=== PATIENT | male | born 1970 | race American Indian/Alaskan Native ===

== ENCOUNTER 2017-01-05 20:32 | Emergency (ER) | payer MEDICAID ==
[2017-01-05 23:30] LABS: CHLORIDE,CL 106 mmol/L (101-111); SODIUM,NA 138 mmol/L (135-145)
[2017-01-05] MEDS ORDERED: Sodium Chloride 0.9% 1,000 ML IV ONE (23:34)
--- NOTE | 2017-01-05 23:41 | EDM.PDOC ---
ED HPI GI/ABDOMINAL - General Chief Complaint: Abdominal Pain Stated Complaint: STOMACH PAIN Time Seen by Provider: 01/05/17 23:30 Source of Information: Reports: Patient History Limitations: Reports: No limitations - History of Present Illness INITIAL COMMENTS - FREE TEXT/NARRATIVE: This 46 yo male patient reports to the ED with continued abdominal pain. The patient reports this episode of pain started at about 1500 today. 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 The patient reports he has been seen by pain management, but is currently on no pain medications. The patient reports he has not taken anything for his current symptoms. The patient reports his is "sick of having pain." The patient reports he is scheduled to see his pain management doctor in 2 weeks for injections. The patient reports he has not been eating or drinking due to increased abdominal pain. The patient reports he did drink last night. Symptom Onset Date: 01/05/17 Symptom Onset Time: 15:00 Timing/Duration: Reports: Getting worse, Intermittent Location: generalized (upper abdomen) Quality: Reports: ache, cramping Severity: severe - Related Data Allergies/ADRs: Allergies Allergy/AdvReac Type Severity Reaction Status Date / Time cats and dogs Allergy Hives Uncoded 01/05/17 21:47 Home Meds: Home Meds Omeprazole 20 mg PO BID 11/09/13 [History] glyBURIDE [Glyburide] 5 mg PO DAILY 11/09/13 [History] Docusate Sodium [Colace] 1 tab PO BID 03/08/16 [History] Loratadine [Claritin] 1 tab PO DAILY PRN 03/08/16 [History] sitaGLIPtin Phos/Metformin HCl [Janumet Xr 50-1,000 mg Tablet] 1 tab PO BID 02/16 [History] traMADol [Ultram] 1 tab PO .Q6H PRN 03/08/16 [History] traZODone 1 tab PO BEDTIME 03/08/16 [History] atorvaSTATin [Lipitor] 20 mg PO DAILY 01/05/17 [History] Past Medical History - Past Health History Medical/Surgical History: Denies Medical/Surgical History HEENT History: Reports: Impaired vision Cardiovascular History: Reports: Heart murmur, High cholesterol Respiratory History: Reports: None Gastrointestinal History: Reports: Chronic constipation, Chronic diarrhea, GERD , Pancreatitis Genitourinary History: Reports: None Musculoskeletal History: Reports: Arthritis, Back pain, chronic, Fracture, Other (see below) Other Musculoskeletal History: Fracture Hands and ankle with arthritis. Neurological History: Reports: None Psychiatric History: Reports: Panic attack Endocrine/Metabolic History: Reports: Diabetes, type II Hematologic History: Reports: None Immunologic History: Reports: None Oncologic (Cancer) History: Reports: None Dermatologic History: Reports: None - Infectious Disease History Infectious Disease History: Reports: Chicken pox - Past Surgical History Head Surgeries/Procedures: Reports: None HEENT Surgical History: Reports: None Cardiovascular Surgical History: Reports: None Respiratory Surgical History: Reports: None GI Surgical History: Reports: Cholecystectomy Musculoskeletal Surgical History: Reports: None, Shoulder surgery, Other (see below) Other Musculoskeletal Surgeries/Procedures:: herniated disc Social & Family History - Family History Family Medical History: Unobtainable HEENT: Reports: Glaucoma Other HEENT Family History: mom GI: Reports: Pancreatitis Neurological: Reports: Seizure Other Neurological Family History: dad Endocrine/Metabolic: Reports: Diabetes, type II Other Endocrine/Metabolic Family History: mom and dad - Tobacco Use Smoking Status *Q: Current Every Day Smoker Years of Tobacco use: 29 Packs/Tins Daily: 0.5 Used Tobacco, but Quit: Yes Month Tobacco Last Used: 10 Second Hand Smoke Exposure: Yes - Caffeine Use Caffeine Use: Reports: Coffee, Soda - Alcohol Use Days Per Week of Alcohol Use: 2 Number of Drinks Per Day: 18 Total Drinks Per Week: 36 Date of Last Drink: 01/04/17 - Recreational Drug Use Recreational Drug Use: Yes Drug Use in Last 12 Months: Yes Recreational Drug Type: Reports: Marijuana/Hashish Recreational Drug Use Frequency: Rarely ED ROS GENERAL - Review of Systems Review Of Systems: ROS reveals no pertinent complaints other than HPI. ED EXAM, GI/ABD - Physical Exam Exam: See Below Exam Limited By: No limitations General Appearance: alert, WD/WN, moderate distress, obese Eyes: bilateral: normal appearance, EOMI Ears: normal external exam, normal canal, hearing grossly normal, normal TMs Nose: normal inspection, normal mucosa, no blood Throat/Mouth: Normal inspection, Normal lips, Normal teeth, Normal gums, Normal oropharynx, Normal voice, No airway compromise Head: atraumatic, normocephalic Neck: normal inspection, supple, non-tender, full range of motion Respiratory/Chest: no respiratory distress, lungs clear, normal breath sounds, no accessory muscle use, chest non-tender Cardiovascular: normal peripheral pulses, regular rate, rhythm, no edema, no gallop, no JVD, no murmur, no rub GI/Abdominal: normal bowel sounds, soft, no organomegaly, no distention, no abnormal bruit, no mass, tenderness (diffuse upper abdominal tenderness) (Male) Exam: Deferred Rectal (Males) Exam: Deferred Back Exam: normal inspection, full range of motion, NT Extremities: normal inspection, normal range of motion, non-tender, normal capillary refill, no pedal edema Neurological: alert, oriented, CN II-XII intact, normal cognition, normal gait, normal reflexes, no motor/sensory deficits Psychiatric: normal affect, depressed mood Skin Exam: Warm, Dry, Intact, Normal color, No rash Lymphatic: no adenopathy Course - Vital Signs Last Recorded V/S: Last Vital Signs Temp 37.3 C 01/05/17 21:45 Pulse 87 01/05/17 21:45 Resp 20 01/05/17 21:45 BP 142/73 H 01/05/17 21:45 Pulse Ox 87 L 01/05/17 21:45 - Orders/Labs/Meds Orders: Active Orders 24 hr Category Date Time Status CULTURE BLOOD [BC] Stat Lab 01/05/17 23:00 Received Lactated Ringers [Ringers, Lactated] 1,000 ml Med 01/06/17 01:18 Active IV .BOLUS Medication Orders Lactated Ringer's (Ringers, Lactated) 1,000 mls @ 999 mls/hr IV .BOLUS ONE Stop: 01/06/17 02:18 Last Admin: 01/06/17 01:21 Dose: 999 mls/hr Labs: Laboratory Tests 01/05/17 01/05/17 01/05/17 Range/Units 23:00 23:00 23:00 WBC 9.8 (5.0-10.0) 10^3/uL RBC 5.01 (4.6-6.2) 10^6/uL Hgb 15.8 (14.0-18.0) g/dL Hct 46.6 (40.0-54.0) % MCV 93.0 (80-100) fL MCH 31.5 (27.0-34.0) pg MCHC 33.9 (33.0-35.0) g/dL Plt Count 279 (150-450) 10^3/uL Neut % (Auto) 50.5 (42.2-75.2) % Lymph % (Auto) 36.1 (20.5-50.1) % Stevens % (Auto) 9.2 H (2-8) % Eos % (Auto) 3.7 H (1.0-3.0) % Baso % (Auto) 0.5 (0.0-1.0) % Sodium 138 (135-145) mmol/L Potassium 3.6 (3.6-5.0) mmol/L Chloride 106 (101-111) mmol/L Carbon Dioxide 24.0 (21.0-31.0) mmol/L Anion Gap 11.6 BUN 18 (7-18) mg/dL Creatinine 0.8 (0.6-1.3) mg/dL Est Cr Clr Drug Dosing 107.87 mL/min Estimated GFR (MDRD) > 60 BUN/Creatinine Ratio 22.50 Glucose 131 H (74-105) mg/dL Lactic Acid (0.5-2.2) mmol/L Calcium 9.2 (8.4-10.2) mg/dl Total Bilirubin 0.5 (0.2-1.0) mg/dL AST 27 (10-42) IU/L ALT 30 (10-60) IU/L Alkaline Phosphatase 63 (42-121) IU/L Ammonia 26 (11-35) umol/L Total Protein 7.9 (6.7-8.2) g/dl Albumin 4.6 (3.2-5.5) g/dl Globulin 3.3 Albumin/Globulin Ratio 1.39 Amylase 888 H (28-100) U/L Lipase 31 (22-51) U/L Urine Color (YELLOW) Urine Appearance (CLEAR) Urine pH (5.0-9.0) Ur Specific Chelsea (1.005-1.030) Urine Protein (NEGATIVE) Urine Glucose (UA) (NEGATIVE) Urine Ketones (NEGATIVE) Urine Occult Blood (NEGATIVE) Urine Nitrite (NEGATIVE) Urine Bilirubin (NEGATIVE) Urine Urobilinogen (0.2-1.0) mg/dL Ur Leukocyte Esterase (NEGATIVE) Urine RBC /HPF Urine WBC (0-5/HPF) /HPF Ur Epithelial Cells /HPF Urine Bacteria (0-FEW/HPF) /HPF Urine Mucus /LPF Urine Opiates Screen (NEGATIVE) Ur Oxycodone Screen (NEGATIVE) Urine Methadone Screen (NEGATIVE) Ur Barbiturates Screen (NEGATIVE) U Tricyclic Antidepress (NEGATIVE) Ur Phencyclidine Scrn (NEGATIVE) Ur Amphetamine Screen (NEGATIVE) U Methamphetamines Scrn (NEGATIVE) Urine MDMA Screen (NEGATIVE) U Benzodiazepines Scrn (NEGATIVE) Urine Cocaine Screen (NEGATIVE) U Marijuana (THC) Screen (NEGATIVE) 01/05/17 01/06/17 01/06/17 Range/Units 23:00 00:47 00:47 WBC (5.0-10.0) 10^3/uL RBC (4.6-6.2) 10^6/uL Hgb (14.0-18.0) g/dL Hct (40.0-54.0) % MCV (80-100) fL MCH (27.0-34.0) pg MCHC (33.0-35.0) g/dL Plt Count (150-450) 10^3/uL Neut % (Auto) (42.2-75.2) % Lymph % (Auto) (20.5-50.1) % Stevens % (Auto) (2-8) % Eos % (Auto) (1.0-3.0) % Baso % (Auto) (0.0-1.0) % Sodium (135-145) mmol/L Potassium (3.6-5.0) mmol/L Chloride (101-111) mmol/L Carbon Dioxide (21.0-31.0) mmol/L Anion Gap BUN (7-18) mg/dL Creatinine (0.6-1.3) mg/dL Est Cr Clr Drug Dosing mL/min Estimated GFR (MDRD) BUN/Creatinine Ratio Glucose (74-105) mg/dL Lactic Acid 1.6 (0.5-2.2) mmol/L Calcium (8.4-10.2) mg/dl Total Bilirubin (0.2-1.0) mg/dL AST (10-42) IU/L ALT (10-60) IU/L Alkaline Phosphatase (42-121) IU/L Ammonia (11-35) umol/L Total Protein (6.7-8.2) g/dl Albumin (3.2-5.5) g/dl Globulin Albumin/Globulin Ratio Amylase (28-100) U/L Lipase (22-51) U/L Urine Color Yellow (YELLOW) Urine Appearance Clear (CLEAR) Urine pH 5.5 (5.0-9.0) Ur Specific Chelsea >= 1.030 (1.005-1.030) Urine Protein 100 H (NEGATIVE) Urine Glucose (UA) Negative (NEGATIVE) Urine Ketones Negative (NEGATIVE) Urine Occult Blood Negative (NEGATIVE) Urine Nitrite Negative (NEGATIVE) Urine Bilirubin Small H (NEGATIVE) Urine Urobilinogen 0.2 (0.2-1.0) mg/dL Ur Leukocyte Esterase Negative (NEGATIVE) Urine RBC 0-5 /HPF Urine WBC 0-5 (0-5/HPF) /HPF Ur Epithelial Cells Rare /HPF Urine Bacteria Few (0-FEW/HPF) /HPF Urine Mucus Moderate H /LPF Urine Opiates Screen Negative (NEGATIVE) Ur Oxycodone Screen Negative (NEGATIVE) Urine Methadone Screen Negative (NEGATIVE) Ur Barbiturates Screen Negative (NEGATIVE) U Tricyclic Antidepress Positive H (NEGATIVE) Ur Phencyclidine Scrn Negative (NEGATIVE) Ur Amphetamine Screen Negative (NEGATIVE) U Methamphetamines Scrn Negative (NEGATIVE) Urine MDMA Screen Negative (NEGATIVE) U Benzodiazepines Scrn Negative (NEGATIVE) Urine Cocaine Screen Negative (NEGATIVE) U Marijuana (THC) Screen Positive H (NEGATIVE) Meds: Medications Generic Name Dose Route Start Last Admin Trade Name Freq PRN Reason Stop Dose Admin Lactated Ringer's 1,000 mls @ 999 mls/hr 01/06/17 01:18 01/06/17 01:21 Ringers, Lactated IV 01/06/17 02:18 999 mls/hr .BOLUS ONE Administration Discontinued Medications Generic Name Dose Route Start Last Admin Trade Name Freq PRN Reason Stop Dose Admin Sodium Chloride 1,000 mls @ 999 mls/hr 01/05/17 23:34 01/05/17 23:53 Normal Saline IV 01/06/17 00:34 999 mls/hr .BOLUS ONE Administration Tramadol HCl 100 mg 01/06/17 01:18 01/06/17 01:24 Ultram PO 01/06/17 01:19 100 mg ONETIME ONE Administration - Re-Assessments/Exams Free Text/Narrative Re-Assessment/Exam: 05/06/17 01:20 The patient was advised of the examination and lab results. The patient reported that he has been diagnosed with pancreatitis (previously denied). The patient was offered options for treatment 1) patient will be given IV Lactated Ringers and PO Tramadol (patient now remembers that his pain management doctor had given him Tramadol, but he has not taken any) or 2) I offered to call the hospitalist for admission. The patient elected to have the IV fluid and Tramadol and be discharged. Departure - Departure Time of Disposition: 02:15 Disposition: Home, Self-Care 01 Condition: fair Clinical Impression: Pancreatitis Qualifiers: Chronicity: acute Pancreatitis type: alcohol induced Acute pancreatitis complication: unspecified Qualified Code(s): K85.20 - Alcohol induced acute pancreatitis without necrosis or infection Instructions: Acute Pancreatitis, [id number] Forms: ED Department Discharge Care Plan Goals: The patient was advised of the examination and lab results during the visit. The patient was given 1 liter of IV Saline, 1 liter of IV Lactated Ringers and 100 mg of oral Tramadol while in the ED. The patient was given the option for me to contact our hospitalist for continued care, but the patient elected to be treated in the ED and released. If the patient has any additional symptoms or concerns, the patient should follow-up with his primary care facility, with his painter drum or return to the emergency department. - My Orders Last 24 Hours: My Active Orders 01/05/17 23:00 CULTURE BLOOD [BC] Stat 01/06/17 01:18 Lactated Ringers [Ringers, Lactated] 1,000 ml IV .BOLUS - Assessment/Plan Last 24 Hours: My Active Orders 01/05/17 23:00 CULTURE BLOOD [BC] Stat 01/06/17 01:18 Lactated Ringers [Ringers, Lactated] 1,000 ml IV .BOLUS
[2017-01-06] MEDS ORDERED: Lactated Ringers 1,000 ML IV ONE (01:18)
[2017-01-06] MEDS ORDERED: traMADol 50 MG Tab PO ONE (01:18)
[2017-01-06 02:22] VITALS: BP 120/78
== END 2017-01-06 02:24 | disposition home or self-care (01) ==
LOC: DL.ED 20:32
DX: K85.20 Alcohol induced acute pancreatitis without necrosis or infection (principal); K21.9 Gastro-esophageal reflux disease without esophagitis; M19.90 Unspecified osteoarthritis, unspecified site; E11.9 Type 2 diabetes mellitus without complications; R01.1 Cardiac murmur, unspecified; E78.00 Pure hypercholesterolemia, unspecified; F17.210 Nicotine dependence, cigarettes, uncomplicated; Z79.899 Other long term (current) drug therapy; Z90.49 Acquired absence of other specified parts of digestive tract; Z91.09 Other allergy status, other than to drugs and biological substances
CPT/HCPCS: 36415; 80053; 80305; 81001; 82140; 82150; 83605; 83690; 85025; 87040; 96360; 96361; 99283; A9270; J7030; J7120

== ENCOUNTER 2017-02-22 06:01 | Day surgery (SDC) | payer MEDICAID ==
[2017-02-22] MEDS ORDERED: fentaNYL 100 MCG/2 ML SDV ONE (06:16)
[2017-02-22] MEDS ORDERED: Midazolam 1 MG/ML 2 ML SDV ONE (06:16)
[2017-02-22] MEDS ORDERED: Sodium Chloride 0.9% 10 ML Syringe FLUSH PRN (07:30)
[2017-02-22] MEDS ORDERED: Dextrose 5%-0.45% NaCl 1,000 ML IV SCH (07:30)
[2017-02-22] MEDS ORDERED: fentaNYL 100 MCG/2 ML SDV IV ONE ×3 (07:32→15:18)
[2017-02-22] MEDS ORDERED: Midazolam 1 MG/ML 2 ML SDV IV ONE ×3 (07:33→15:18)
[2017-02-22 09:41] VITALS: BP 116/78
--- NOTE | 2017-02-22 11:26 | OR ---
DATE: 02/22/2017 PROCEDURE: Esophagogastroduodenoscopy and multiple pinch biopsies. INSTRUMENT USED: GIF-H180 Olympus video panendoscope. PREMEDICATIONS: No oral topical anesthesia used. Fentanyl 100 mcg intravenous, Versed 2 mg intravenous. The procedure was done under pulse oximetry, BP recording, and assistant food service manager. INDICATIONS: The patient with persistent abdominal pain, unexplained and not responsive to medical measures, on long-term PPI. Recent imaging study suggestive of thickened duodenal wall. Esophagogastroduodenoscopy is performed for detection of any active erosive lesions, malignancy also under consideration, duodenal biopsy is to be obtained for any evidence of amyloidosis, H. pylori status to be determined, endoscopic hemostasis therapy if needed. DESCRIPTION OF PROCEDURE: The scope was passed with ease. Adequate visualization of the esophagus was made from proximal to distal areas. No upper esophageal lesions identified. No distal esophageal stricture. No uphill or downhill esophageal varices. No Sara-Jacinto tear. No evidence of erosive esophagitis by [place] criteria. No esophageal polyp or tumor mass identified. Z-line was seen at around 37 cm distal to the oral verge, 4 quadrant biopsies were taken from the pink columnar epithelium and sent for any microscopic evidence of intestinal metaplasia. Sliding hiatal hernia was noted. Gastric fundus examination by retroflexion showed no polypoid lesions. No proximal gastric varices noted. No gastric ulcer, malignant mass, or vascular ectasia identified. Multiple pinch biopsies were obtained from the gastric antrum and proximal body and sent for PyloriTek test for H. pylori and histopathology. Duodenal bulb showed no ulcer. Visualized second part of the duodenum was unremarkable. Multiple pinch biopsies were taken from the second part of the duodenum and sent for any histopathologic evidence of amyloidosis. No bleeding was noted from any of the visualized areas at the completion of examination. Photographs were taken of the duodenal bulb, gastric antrum, fundus, and distal esophagus. IMPRESSION: Sliding hiatal hernia. The patient tolerated the procedure well. [facility] /[id number]
== END 2017-02-22 09:50 | disposition home or self-care (01) ==
LOC: DL.ENDO 06:01
PROVIDERS: ATTEND Internal Medicine Gastroenterology
DX: K29.50 Unspecified chronic gastritis without bleeding (principal); K44.9 Diaphragmatic hernia without obstruction or gangrene
CPT/HCPCS: 43239; 87077; J2250; J3010; J7042

== ENCOUNTER 2017-04-17 14:25 | Emergency (ER) | payer MEDICAID ==
[2017-04-17 17:26] LABS: CHLORIDE,CL 101 mmol/L (101-111); SODIUM,NA 136 mmol/L (135-145)
[2017-04-17 17:29] LABS: ACETAMINOPHEN < 10
[2017-04-17] MEDS ORDERED: Ondansetron 4 MG/2 ML SDV IV ONE (17:39)
[2017-04-17] MEDS ORDERED: Lactated Ringers 1,000 ML IV ONE (17:39)
[2017-04-17] MEDS ORDERED: HYDROmorphone 1 MG/ML Syringe IVPUSH ONE (17:39)
--- NOTE | 2017-04-17 17:51 | EDM.PDOC ---
Scribed by Astrid Lopez 04/17/17 1325 for Phan Christiansen PA ED HPI GENERAL MEDICAL PROBLEM - General Chief Complaint: Gastrointestinal Problem Stated Complaint: [id number] SICK FOR FEW DAYS Time Seen by Provider: 04/17/17 16:30 Source of Information: Reports: Patient, RN, RN Notes Reviewed History Limitations: Reports: No Limitations - History of Present Illness INITIAL COMMENTS - FREE TEXT/NARRATIVE: Patient presents with being sick and nauseated for 3-4 days. He has diffuse abdominal pain, right back and hip pain. Yesterday the left eye swollen. He also has body aches. He saw Dr. Malik last week. Tylenol and Ibuprofen with no relief. Patient has lost his Tramadol and gabapentin. Patient has only been lying around and not moving. Location: Reports: Abdomen, Back Quality: Reports: Ache Severity: Moderate Improves with: Reports: None Worsens with: Reports: None Associated Symptoms: Reports: No Other Symptoms Abdomen Pain Score (Numeric/FACES): 8 - Related Data Allergies Allergy/AdvReac Type Severity Reaction Status Date / Time cats and dogs Allergy Hives Uncoded 02/22/17 06:30 Home Meds: Home Meds Omeprazole 20 mg PO BID 11/09/13 [History] glyBURIDE [Glyburide] 2.5 mg PO BID 11/09/13 [History] Docusate Sodium [Colace] 1 tab PO BID 03/08/16 [History] Loratadine [Claritin] 1 tab PO DAILY PRN 03/08/16 [History] sitaGLIPtin Phos/Metformin HCl [Janumet Xr 50-1,000 mg Tablet] 50 - 1,000 mg PO BID 03/08/16 [History] traZODone 1 tab PO BEDTIME 03/08/16 [History] atorvaSTATin [Lipitor] 20 mg PO DAILY 01/05/17 [History] Amitriptyline [Elavil] 2 tab PO BEDTIME 02/20/17 [History] Aspirin [Ecotrin] 1 tab PO DAILY 02/20/17 [History] Gabapentin [Neurontin] 1 tab PO QID 02/20/17 [History] tiZANidine [Zanaflex] 1 tab PO TID 02/20/17 [History] traMADol [Ultram] 1 tab PO Q6H 06/20/17 [History] Past Medical History - Past Health History Medical/Surgical History: Denies Medical/Surgical History HEENT History: Reports: Impaired Vision Cardiovascular History: Reports: Heart Murmur, High Cholesterol Respiratory History: Reports: None Gastrointestinal History: Reports: Chronic Constipation, Chronic Diarrhea, GERD , Pancreatitis Genitourinary History: Reports: None, Other (See Below) (proteinuria) Musculoskeletal History: Reports: Arthritis, Back Pain, Chronic, Fracture, Other (See Below) Other Musculoskeletal History: Fracture Hands and ankle with arthritis. Neurological History: Reports: None, Vertigo Psychiatric History: Reports: Panic Attack Endocrine/Metabolic History: Reports: Diabetes, Type II Hematologic History: Reports: None Immunologic History: Reports: None Oncologic (Cancer) History: Reports: None Dermatologic History: Reports: None, Other (See Below) Other Dermatologic History: poison shmuel to bilateral leg - Infectious Disease History Infectious Disease History: Reports: Chicken Pox - Past Surgical History Head Surgeries/Procedures: Reports: None HEENT Surgical History: Reports: None Cardiovascular Surgical History: Reports: None Respiratory Surgical History: Reports: None GI Surgical History: Reports: Cholecystectomy, Colonoscopy (2 months ago.), EGD Neurological Surgical History: Reports: Other (See Below) (herniated disk injection.) Musculoskeletal Surgical History: Reports: None, Arthroscopic Knee, Shoulder Surgery, Other (See Below) Other Musculoskeletal Surgeries/Procedures:: herniated disc Social & Family History - Family History Family Medical History: Unobtainable HEENT: Reports: Glaucoma Other HEENT Family History: mom GI: Reports: Pancreatitis Neurological: Reports: Seizure Other Neurological Family History: dad Endocrine/Metabolic: Reports: Diabetes, type II Other Endocrine/Metabolic Family History: mom and dad - Tobacco Use Smoking Status *Q: Current Every Day Smoker Years of Tobacco use: 20 Packs/Tins Daily: 0.5 Used Tobacco, but Quit: Yes Month Tobacco Last Used: 10 Second Hand Smoke Exposure: No - Caffeine Use Caffeine Use: Reports: Coffee, Energy Drinks, Soda, Tea - Alcohol Use Days Per Week of Alcohol Use: 2 Number of Drinks Per Day: 18 Total Drinks Per Week: 36 - Recreational Drug Use Recreational Drug Use: Yes Drug Use in Last 12 Months: Yes Recreational Drug Type: Reports: Marijuana/Hashish Other Recreational Drug Type: smoked pot several days ago Recreational Drug Use Frequency: Rarely ED ROS GENERAL - Review of Systems Review Of Systems: ROS reveals no pertinent complaints other than HPI. ED EXAM, GI/ABD - Physical Exam Exam: See Below Exam Limited By: No Limitations General Appearance: Alert, WD/WN, Moderate Distress Eyes: Bilateral: Normal Appearance, EOMI Ears: Normal External Exam, Normal Canal, Hearing Grossly Normal, Normal TMs Nose: Normal Inspection, Normal Mucosa, No Blood Throat/Mouth: Normal Inspection, Normal Lips, Normal Teeth, Normal Gums, Normal Oropharynx, Normal Voice, No Airway Compromise Head: Atraumatic, Normocephalic Neck: Normal Inspection, Supple, Non-Tender, Full Range of Motion Respiratory/Chest: No Respiratory Distress, Lungs Clear, Normal Breath Sounds, No Accessory Muscle Use, Chest Non-Tender Cardiovascular: Normal Peripheral Pulses, Regular Rate, Rhythm, No Edema, No Gallop, No JVD, No Murmur, No Rub GI/Abdominal Exam: Normal Bowel Sounds, Soft, No Organomegaly, No Distention, No Abnormal Bruit, No Mass, Pelvis Stable, Tender (diffuse upper abdominal tenderness to palpation) (Male) Exam: Deferred Rectal (Males) Exam: Deferred Back Exam: Normal Inspection, Full Range of Motion, NT Extremities: Normal Inspection, Normal Range of Motion, Non-Tender, Normal Capillary Refill, No Pedal Edema Neurological: Alert, Oriented, CN II-XII Intact, Normal Cognition, Normal Gait, Normal Reflexes, No Motor/Sensory Deficits Psychiatric: Normal Affect, Normal Mood Skin Exam: Warm, Dry, Intact, Normal Color, No Rash Lymphatic: No Adenopathy Course - Vital Signs Last Recorded V/S: Last Vital Signs Temp 36.6 C 04/17/17 18:40 Pulse 63 04/17/17 18:40 Resp 18 04/17/17 18:40 BP 111/57 L 04/17/17 18:40 Pulse Ox 97 04/17/17 18:40 - Orders/Labs/Meds Labs: Laboratory Tests 04/17/17 04/17/17 04/17/17 Range/Units 16:40 16:40 17:00 WBC 8.8 (5.0-10.0) 10^3/uL RBC 4.75 (4.6-6.2) 10^6/uL Hgb 15.4 (14.0-18.0) g/dL Hct 45.5 (40.0-54.0) % MCV 95.8 (80-100) fL MCH 32.4 (27.0-34.0) pg MCHC 33.8 (33.0-35.0) g/dL Plt Count 217 (150-450) 10^3/uL Neut % (Auto) 60.1 (42.2-75.2) % Lymph % (Auto) 29.0 (20.5-50.1) % Orange % (Auto) 7.6 (2-8) % Eos % (Auto) 3.1 H (1.0-3.0) % Baso % (Auto) 0.2 (0.0-1.0) % Sodium (135-145) mmol/L Potassium (3.6-5.0) mmol/L Chloride (101-111) mmol/L Carbon Dioxide (21.0-31.0) mmol/L Anion Gap BUN (7-18) mg/dL Creatinine (0.6-1.3) mg/dL Est Cr Clr Drug Dosing mL/min Estimated GFR (MDRD) BUN/Creatinine Ratio Glucose (74-105) mg/dL Calcium (8.4-10.2) mg/dl Magnesium (1.8-2.5) mg/dL Total Bilirubin (0.2-1.0) mg/dL AST (10-42) IU/L ALT (10-60) IU/L Alkaline Phosphatase (42-121) IU/L Total Protein (6.7-8.2) g/dl Albumin (3.2-5.5) g/dl Globulin Albumin/Globulin Ratio Amylase (28-100) U/L Lipase (22-51) U/L Urine Color Yellow (YELLOW) Urine Appearance Clear (CLEAR) Urine pH 6.5 (5.0-9.0) Ur Specific [place] 1.010 (1.005-1.030) Urine Protein Negative (NEGATIVE) Urine Glucose (UA) Negative (NEGATIVE) Urine Ketones Negative (NEGATIVE) Urine Occult Blood Negative (NEGATIVE) Urine Nitrite Negative (NEGATIVE) Urine Bilirubin Negative (NEGATIVE) Urine Urobilinogen 0.2 (0.2-1.0) mg/dL Ur Leukocyte Esterase Negative (NEGATIVE) Urine RBC Not seen /HPF Urine WBC 0-5 (0-5/HPF) /HPF Ur Epithelial Cells Occasional /HPF Urine Bacteria Occasional (0-FEW/HPF) /HPF Urine Mucus Occasional /LPF Urine Opiates Screen Negative (NEGATIVE) Ur Oxycodone Screen Negative (NEGATIVE) Urine Methadone Screen Negative (NEGATIVE) Acetaminophen Ur Barbiturates Screen Negative (NEGATIVE) U Tricyclic Antidepress Negative (NEGATIVE) Ur Phencyclidine Scrn Negative (NEGATIVE) Ur Amphetamine Screen Negative (NEGATIVE) U Methamphetamines Scrn Negative (NEGATIVE) Urine MDMA Screen Negative (NEGATIVE) U Benzodiazepines Scrn Negative (NEGATIVE) Urine Cocaine Screen Negative (NEGATIVE) U Marijuana (THC) Screen Positive H (NEGATIVE) 04/17/17 Range/Units 17:00 WBC (5.0-10.0) 10^3/uL RBC (4.6-6.2) 10^6/uL Hgb (14.0-18.0) g/dL Hct (40.0-54.0) % MCV (80-100) fL MCH (27.0-34.0) pg MCHC (33.0-35.0) g/dL Plt Count (150-450) 10^3/uL Neut % (Auto) (42.2-75.2) % Lymph % (Auto) (20.5-50.1) % Orange % (Auto) (2-8) % Eos % (Auto) (1.0-3.0) % Baso % (Auto) (0.0-1.0) % Sodium 136 (135-145) mmol/L Potassium 3.4 L (3.6-5.0) mmol/L Chloride 101 (101-111) mmol/L Carbon Dioxide 25.0 (21.0-31.0) mmol/L Anion Gap 13.4 BUN 12 (7-18) mg/dL Creatinine 0.7 (0.6-1.3) mg/dL Est Cr Clr Drug Dosing 121.14 mL/min Estimated GFR (MDRD) > 60 BUN/Creatinine Ratio 17.14 Glucose 132 H (74-105) mg/dL Calcium 8.9 (8.4-10.2) mg/dl Magnesium 1.9 (1.8-2.5) mg/dL Total Bilirubin 0.7 (0.2-1.0) mg/dL AST 23 (10-42) IU/L ALT 30 (10-60) IU/L Alkaline Phosphatase 67 (42-121) IU/L Total Protein 7.1 (6.7-8.2) g/dl Albumin 4.2 (3.2-5.5) g/dl Globulin 2.9 Albumin/Globulin Ratio 1.45 Amylase 795 H (28-100) U/L Lipase 32 (22-51) U/L Urine Color (YELLOW) Urine Appearance (CLEAR) Urine pH (5.0-9.0) Ur Specific [place] (1.005-1.030) Urine Protein (NEGATIVE) Urine Glucose (UA) (NEGATIVE) Urine Ketones (NEGATIVE) Urine Occult Blood (NEGATIVE) Urine Nitrite (NEGATIVE) Urine Bilirubin (NEGATIVE) Urine Urobilinogen (0.2-1.0) mg/dL Ur Leukocyte Esterase (NEGATIVE) Urine RBC /HPF Urine WBC (0-5/HPF) /HPF Ur Epithelial Cells /HPF Urine Bacteria (0-FEW/HPF) /HPF Urine Mucus /LPF Urine Opiates Screen (NEGATIVE) Ur Oxycodone Screen (NEGATIVE) Urine Methadone Screen (NEGATIVE) Acetaminophen < 10 Ur Barbiturates Screen (NEGATIVE) U Tricyclic Antidepress (NEGATIVE) Ur Phencyclidine Scrn (NEGATIVE) Ur Amphetamine Screen (NEGATIVE) U Methamphetamines Scrn (NEGATIVE) Urine MDMA Screen (NEGATIVE) U Benzodiazepines Scrn (NEGATIVE) Urine Cocaine Screen (NEGATIVE) U Marijuana (THC) Screen (NEGATIVE) Meds: Medications Discontinued Medications Generic Name Dose Route Start Last Admin Trade Name Gilma PRN Reason Stop Dose Admin Hydromorphone HCl 1 mg 04/17/17 17:39 04/17/17 17:55 Dilaudid IVPUSH 04/17/17 17:40 1 mg ONETIME ONE Administration Lactated Ringer's 1,000 mls @ 999 mls/hr 04/17/17 17:39 04/17/17 17:54 Ringers, Lactated IV 04/17/17 18:39 999 mls/hr .BOLUS ONE Administration Ondansetron HCl 4 mg 04/17/17 17:39 04/17/17 17:56 Zofran IV 04/17/17 17:40 4 mg ONETIME ONE Administration Departure - Departure Time of Disposition: 17:47 Disposition: Home, Self-Care 01 Condition: Fair Clinical Impression: Acute pancreatitis Qualifiers: Pancreatitis type: unspecified pancreatitis type Acute pancreatitis complication: no infection or necrosis Qualified Code(s): K85.90 - Acute pancreatitis without necrosis or infection, unspecified - Discharge Information Instructions: Acute Pancreatitis, [id number] Forms: ED Department Discharge Care Plan Goals: The patient was advised of the examination and lab results during the visit. The patient was given a liter of IV fluid, IV Zofran and IV Dilaudid while in the ED. The patient was discharged with a script for Foster () #16 to take 1 by mouth every 6 hours as needed for pain and Zofran (4 mg) #20 to take 1 by mouth every 6 hours as needed for nausea. If the patient has any additional symptoms or concerns, the patient should follow-up with his primary care facility or return to the emergency department. I have read and agree with the documentation that has been completed regarding this visit. By signing this record, I attest that the documentation was completed in my physical presence and is an accurate record of the encounter.
[2017-04-17 19:15] VITALS: BP 122/75
== END 2017-04-17 19:01 | disposition home or self-care (01) ==
LOC: DL.ED 14:25
DX: K85.90 Acute pancreatitis without necrosis or infection, unspecified (principal); M19.90 Unspecified osteoarthritis, unspecified site; E78.00 Pure hypercholesterolemia, unspecified; E11.9 Type 2 diabetes mellitus without complications; K21.9 Gastro-esophageal reflux disease without esophagitis; F17.210 Nicotine dependence, cigarettes, uncomplicated; Z91.048 Other nonmedicinal substance allergy status; Z79.82 Long term (current) use of aspirin; Z79.899 Other long term (current) drug therapy; Z90.49 Acquired absence of other specified parts of digestive tract; Z79.84 Long term (current) use of oral hypoglycemic drugs
CPT/HCPCS: 36415; 80053; 80305; 81001; 82150; 83690; 83735; 85025; 96365; 96375; 99284; G0480; J1170; J2405; J7120

== ENCOUNTER 2017-11-01 13:19 | Emergency (ER) | payer MEDICAID, OTHER ==
--- NOTE | 2017-11-01 13:45 | EDM.PDOC ---
<ChristiansenPhan Yoandy - Last Filed: 11/01/17 13:39> ED HPI GENERAL MEDICAL PROBLEM - General Chief Complaint: Flank Pain Stated Complaint: BACK TO RIBS HURT Time Seen by Provider: 11/01/17 13:40 Source of Information: Reports: Patient History Limitations: Reports: No Limitations - History of Present Illness INITIAL COMMENTS - FREE TEXT/NARRATIVE: This 47 yo male patient reports to the ED with a 2-3 day history of right sided abdominal pain with diarrhea and nausea. The patient reports he has been taking Tylenol with no relief from the symptoms. The patient reports that he attempted to get into the [facility] to be seen, but there were no appointments available. Onset Date: 10/30/17 Duration: Constant Location: Reports: Abdomen (right sided abdomen ) Quality: Reports: Ache, Sharp Severity: Moderate Improves with: Reports: None Worsens with: Reports: None Associated Symptoms: Reports: Nausea/Vomiting Treatments WAFER FABRICATOR: Reports: Acetaminophen - Related Data Allergies Allergy/AdvReac Type Severity Reaction Status Date / Time cats and dogs Allergy Hives Uncoded 11/01/17 13:30 Home Meds: Home Meds Omeprazole 20 mg PO BID 11/09/13 [History] glyBURIDE [Glyburide] 2.5 mg PO BID 11/09/13 [History] Docusate Sodium [Colace] 1 tab PO BID 03/08/16 [History] Loratadine [Claritin] 1 tab PO DAILY PRN 03/08/16 [History] sitaGLIPtin Phos/Metformin HCl [Janumet Xr 50-1,000 mg Tablet] 50 - 1,000 mg PO BID 03/08/16 [History] traZODone 1 tab PO BEDTIME 03/08/16 [History] atorvaSTATin [Lipitor] 20 mg PO DAILY 01/05/17 [History] Amitriptyline [Elavil] 2 tab PO BEDTIME 02/20/17 [History] Aspirin [Ecotrin] 1 tab PO DAILY 02/20/17 [History] Gabapentin [Neurontin] 1 tab PO QID 02/20/17 [History] tiZANidine [Zanaflex] 1 tab PO TID 02/20/17 [History] traMADol [Ultram] 1 tab PO Q6H 02/20/17 [History] Past Medical History - Past Health History Medical/Surgical History: Denies Medical/Surgical History HEENT History: Reports: Impaired Vision Cardiovascular History: Reports: Heart Murmur, High Cholesterol Respiratory History: Reports: None Gastrointestinal History: Reports: Chronic Constipation, Chronic Diarrhea, GERD , Pancreatitis Genitourinary History: Reports: None, Other (See Below) (proteinuria) Musculoskeletal History: Reports: Arthritis, Back Pain, Chronic, Fracture, Other (See Below) Other Musculoskeletal History: Fracture Hands and ankle with arthritis. Neurological History: Reports: None, Vertigo Psychiatric History: Reports: Panic Attack Endocrine/Metabolic History: Reports: Diabetes, Type II Hematologic History: Reports: None Immunologic History: Reports: None Oncologic (Cancer) History: Reports: None Dermatologic History: Reports: None, Other (See Below) Other Dermatologic History: poison shmuel to bilateral leg - Infectious Disease History Infectious Disease History: Reports: Chicken Pox - Past Surgical History Head Surgeries/Procedures: Reports: None HEENT Surgical History: Reports: None Cardiovascular Surgical History: Reports: None Respiratory Surgical History: Reports: None GI Surgical History: Reports: Cholecystectomy, Colonoscopy (2 months ago.), EGD Neurological Surgical History: Reports: Other (See Below) (herniated disk injection.) Musculoskeletal Surgical History: Reports: None, Arthroscopic Knee, Shoulder Surgery, Other (See Below) Other Musculoskeletal Surgeries/Procedures:: herniated disc Social & Family History - Family History Family Medical History: Unobtainable HEENT: Reports: Glaucoma Other HEENT Family History: mom GI: Reports: Pancreatitis Neurological: Reports: Seizure Other Neurological Family History: dad Endocrine/Metabolic: Reports: Diabetes, type II Other Endocrine/Metabolic Family History: mom and dad - Tobacco Use Smoking Status *Q: Current Every Day Smoker Years of Tobacco use: 20 Packs/Tins Daily: 0.5 Used Tobacco, but Quit: Yes Month Tobacco Last Used: 10 Second Hand Smoke Exposure: No - Caffeine Use Caffeine Use: Reports: Coffee, Soda - Alcohol Use Days Per Week of Alcohol Use: 2 Number of Drinks Per Day: 18 Total Drinks Per Week: 36 - Recreational Drug Use Recreational Drug Use: No Drug Use in Last 12 Months: Yes Recreational Drug Type: Reports: Marijuana/Hashish Other Recreational Drug Type: smoked pot several days ago Recreational Drug Use Frequency: Rarely ED ROS GENERAL - Review of Systems Review Of Systems: ROS reveals no pertinent complaints other than HPI. ED EXAM, GI/ABD - Physical Exam Exam: See Below Exam Limited By: No Limitations General Appearance: Alert, WD/WN, Moderate Distress Eyes: Bilateral: Normal Appearance, EOMI Ears: Normal External Exam Nose: Normal Inspection Throat/Mouth: Normal Voice, No Airway Compromise Head: Atraumatic, Normocephalic Neck: Normal Inspection, Full Range of Motion Respiratory/Chest: No Respiratory Distress, Normal Breath Sounds Cardiovascular: Normal Peripheral Pulses, Regular Rate, Rhythm GI/Abdominal Exam: Guarding (RLQ), Rebound, Tender (RLQ) (Male) Exam: Deferred Rectal (Males) Exam: Deferred Extremities: Normal Inspection, Normal Range of Motion Neurological: Alert, Oriented, Normal Cognition, Other Psychiatric: Normal Affect Skin Exam: Warm, Intact, Normal Color, No Rash, Diaphoretic Lymphatic: No Adenopathy Course - Vital Signs Last Recorded V/S: Last Vital Signs Temp 36.3 C 11/01/17 13:33 Pulse 87 11/01/17 13:33 Resp 16 11/01/17 13:33 BP 128/73 11/01/17 13:33 Pulse Ox 100 11/01/17 13:33 - Orders/Labs/Meds Orders: Active Orders 24 hr Category Date Time Status Abdomen Pelvis wo Cont [CT] Stat Exams 11/01/17 14:48 Taken CULTURE BLOOD [BC] Stat Lab 11/01/17 13:45 Received Labs: Laboratory Tests 11/01/17 11/01/17 11/01/17 Range/Units 13:45 13:45 13:45 WBC 9.2 (5.0-10.0) 10^3/uL RBC 4.85 (4.6-6.2) 10^6/uL Hgb 15.8 (14.0-18.0) g/dL Hct 45.4 (40.0-54.0) % MCV 93.6 (80-100) fL MCH 32.6 (27.0-34.0) pg MCHC 34.8 (33.0-35.0) g/dL Plt Count 271 (150-450) 10^3/uL Neut % (Auto) 47.5 (42.2-75.2) % Lymph % (Auto) 39.5 (20.5-50.1) % [place] % (Auto) 7.4 (2-8) % Eos % (Auto) 5.1 H (1.0-3.0) % Baso % (Auto) 0.5 (0.0-1.0) % Sodium (135-145) mmol/L Potassium (3.6-5.0) mmol/L Chloride (101-111) mmol/L Carbon Dioxide (21.0-31.0) mmol/L Anion Gap BUN (7-18) mg/dL Creatinine (0.6-1.3) mg/dL Est Cr Clr Drug Dosing mL/min Estimated GFR (MDRD) BUN/Creatinine Ratio Glucose (74-105) mg/dL Lactic Acid 1.3 (0.5-2.2) mmol/L Calcium (8.4-10.2) mg/dl Total Bilirubin (0.2-1.0) mg/dL AST (10-42) IU/L ALT (10-60) IU/L Alkaline Phosphatase (42-121) IU/L Total Protein (6.7-8.2) g/dl Albumin (3.2-5.5) g/dl Globulin Albumin/Globulin Ratio Amylase 605 H (28-100) U/L Lipase 18 L (22-51) U/L Urine Color (YELLOW) Urine Appearance (CLEAR) Urine pH (5.0-9.0) Ur Specific [place] (1.005-1.030) Urine Protein (NEGATIVE) Urine Glucose (UA) (NEGATIVE) Urine Ketones (NEGATIVE) Urine Occult Blood (NEGATIVE) Urine Nitrite (NEGATIVE) Urine Bilirubin (NEGATIVE) Urine Urobilinogen (0.2-1.0) mg/dL Ur Leukocyte Esterase (NEGATIVE) Urine RBC /HPF Urine WBC (0-5/HPF) /HPF Ur Epithelial Cells /HPF Urine Bacteria (0-FEW/HPF) /HPF Urine Mucus /LPF Urine Opiates Screen (NEGATIVE) Ur Oxycodone Screen (NEGATIVE) Urine Methadone Screen (NEGATIVE) Ur Barbiturates Screen (NEGATIVE) U Tricyclic Antidepress (NEGATIVE) Ur Phencyclidine Scrn (NEGATIVE) Ur Amphetamine Screen (NEGATIVE) U Methamphetamines Scrn (NEGATIVE) Urine MDMA Screen (NEGATIVE) U Benzodiazepines Scrn (NEGATIVE) Urine Cocaine Screen (NEGATIVE) U Marijuana (THC) Screen (NEGATIVE) 11/01/17 11/01/17 11/01/17 Range/Units 13:45 14:38 14:38 WBC (5.0-10.0) 10^3/uL RBC (4.6-6.2) 10^6/uL Hgb (14.0-18.0) g/dL Hct (40.0-54.0) % MCV (80-100) fL MCH (27.0-34.0) pg MCHC (33.0-35.0) g/dL Plt Count (150-450) 10^3/uL Neut % (Auto) (42.2-75.2) % Lymph % (Auto) (20.5-50.1) % [place] % (Auto) (2-8) % Eos % (Auto) (1.0-3.0) % Baso % (Auto) (0.0-1.0) % Sodium 135 (135-145) mmol/L Potassium 3.9 (3.6-5.0) mmol/L Chloride 103 (101-111) mmol/L Carbon Dioxide 23.0 (21.0-31.0) mmol/L Anion Gap 12.9 BUN 17 (7-18) mg/dL Creatinine 0.7 (0.6-1.3) mg/dL Est Cr Clr Drug Dosing 126.21 mL/min Estimated GFR (MDRD) > 60 BUN/Creatinine Ratio 24.28 Glucose 170 H (74-105) mg/dL Lactic Acid (0.5-2.2) mmol/L Calcium 9.2 (8.4-10.2) mg/dl Total Bilirubin 0.6 (0.2-1.0) mg/dL AST 23 (10-42) IU/L ALT 23 (10-60) IU/L Alkaline Phosphatase 79 (42-121) IU/L Total Protein 7.5 (6.7-8.2) g/dl Albumin 4.4 (3.2-5.5) g/dl Globulin 3.1 Albumin/Globulin Ratio 1.42 Amylase (28-100) U/L Lipase (22-51) U/L Urine Color Yellow (YELLOW) Urine Appearance Clear (CLEAR) Urine pH 7.0 (5.0-9.0) Ur Specific [place] 1.020 (1.005-1.030) Urine Protein 30 H (NEGATIVE) Urine Glucose (UA) Negative (NEGATIVE) Urine Ketones Trace H (NEGATIVE) Urine Occult Blood Negative (NEGATIVE) Urine Nitrite Negative (NEGATIVE) Urine Bilirubin Negative (NEGATIVE) Urine Urobilinogen 0.2 (0.2-1.0) mg/dL Ur Leukocyte Esterase Small H (NEGATIVE) Urine RBC 0-5 /HPF Urine WBC 10-20 H (0-5/HPF) /HPF Ur Epithelial Cells Rare /HPF Urine Bacteria Few (0-FEW/HPF) /HPF Urine Mucus Many H /LPF Urine Opiates Screen Negative (NEGATIVE) Ur Oxycodone Screen Negative (NEGATIVE) Urine Methadone Screen Negative (NEGATIVE) Ur Barbiturates Screen Negative (NEGATIVE) U Tricyclic Antidepress Positive H (NEGATIVE) Ur Phencyclidine Scrn Negative (NEGATIVE) Ur Amphetamine Screen Positive H (NEGATIVE) U Methamphetamines Scrn Positive H (NEGATIVE) Urine MDMA Screen Negative (NEGATIVE) U Benzodiazepines Scrn Negative (NEGATIVE) Urine Cocaine Screen Negative (NEGATIVE) U Marijuana (THC) Screen Positive H (NEGATIVE) Meds: Medications Discontinued Medications Generic Name Dose Route Start Last Admin Trade Name Freq PRN Reason Stop Dose Admin Hydromorphone HCl 1 mg 11/01/17 14:43 11/01/17 14:53 Dilaudid IVPUSH 11/01/17 14:44 1 mg ONETIME ONE Administration Sodium Chloride 1,000 mls @ 999 mls/hr 11/01/17 13:35 11/01/17 13:50 Normal Saline IV 11/01/17 14:35 999 mls/hr .BOLUS ONE Administration Ondansetron HCl 4 mg 11/01/17 14:43 11/01/17 14:53 Zofran IV 11/01/17 14:44 4 mg ONETIME ONE Administration Departure - Departure Disposition: Home, Self-Care 01 Clinical Impression: Acute right flank pain, Recurrent pancreatitis - Discharge Information Instructions: Flank Pain, Adult, Chronic Pancreatitis Forms: ED Department Discharge Additional Instructions: Rx: Zofran 4mg Rx: [place] 5mg/325mg Clear liquid diet until pain and nausea resolve. Follow up in clinic at the first available appointment for recheck. - My Orders Last 24 Hours: My Active Orders 11/01/17 14:48 Abdomen Pelvis wo Cont [CT] Stat - Assessment/Plan Last 24 Hours: My Active Orders 11/01/17 14:48 Abdomen Pelvis wo Cont [CT] Stat <Dylan Nunez - Last Filed: 11/01/17 16:00> ED HPI GENERAL MEDICAL PROBLEM - History of Present Illness INITIAL COMMENTS - FREE TEXT/NARRATIVE: Assumed care of pt from Phan LIM at 1400HRS due to shift change. No changes to CC/HPI, Hx, Meds, ROS, or exam as documented by Phan LIM for this encounter. ED EXAM, GI/ABD - Physical Exam Eyes: Bilateral: Normal Appearance (no scleral icterus) Course - Radiology Interpretation Free Text/Narrative:: CT abdomen and pelvis: No acute findings. See rad report. CT Results Date: 11/01/17 Departure - Departure Time of Disposition: 15:57 Condition: Fair
[2017-11-01] MEDS: Sodium Chloride 0.9% 1,000 ML IV ONE (13:50)
[2017-11-01 14:15] LABS: CHLORIDE,CL 103 mmol/L (101-111); SODIUM,NA 135 mmol/L (135-145)
[2017-11-01] MEDS: Ondansetron 4 MG/2 ML SDV IV ONE (14:53)
[2017-11-01] MEDS: HYDROmorphone 1 MG/ML Syringe IVPUSH ONE (14:53)
[2017-11-01 16:38] VITALS: BP 138/64
== END 2017-11-01 16:37 | disposition home or self-care (01) ==
LOC: DL.ED 13:19
DX: K86.1 Other chronic pancreatitis (principal); E78.00 Pure hypercholesterolemia, unspecified; E11.9 Type 2 diabetes mellitus without complications; F17.210 Nicotine dependence, cigarettes, uncomplicated; Z91.048 Other nonmedicinal substance allergy status; Z79.899 Other long term (current) drug therapy; Z79.82 Long term (current) use of aspirin
CPT/HCPCS: 36415; 74176; 80053; 80305; 81001; 82150; 83605; 83690; 85025; 87040; 96361; 96374; 96375; 99284; J1170; J2405; J7030

== ENCOUNTER 2018-03-04 17:38 | Emergency (ER) | payer MEDICAID, OTHER ==
[2018-03-04 17:48] VITALS: BP 137/75
[2018-03-04] MEDS ORDERED: Albuterol/Ipratropium 3.0-0.5 MG/3 ML Neb Soln NEB ONE (18:04)
[2018-03-04] MEDS ORDERED: Albuterol 6.7 GM Inhaler INH ONE (18:28)
[2018-03-04] MEDS ORDERED: Azithromycin 250 MG Tab PO ONE (18:29)
[2018-03-04] MEDS ORDERED: Benzonatate 100 MG Cap PO ONE (18:29)
[2018-03-04 18:33] LABS: ANION GAP 13.7; CHLORIDE,CL 101 mmol/L (101-111); SODIUM,NA 136 mmol/L (135-145)
--- NOTE | 2018-03-04 18:34 | EDM.PDOC ---
Scribed by Astrid Lopez 03/04/18 2340 for Dylan Nunez MD ED HPI GENERAL MEDICAL PROBLEM - General Chief Complaint: ENT Problem Stated Complaint: HAS A COLD. [phone]. ID IS Time Seen by Provider: 03/04/18 17:55 Source of Information: Reports: Patient, RN, RN Notes Reviewed History Limitations: Reports: No Limitations - History of Present Illness INITIAL COMMENTS - FREE TEXT/NARRATIVE: Patient presents to ER with complaint of 3 days duration of productive cough and some wheezing, low grade fevers and sore throat. He has chronic low back pain which has been made worse by the cough. He states he is awaiting a date for low back surgery. He has to quit smoking before he can have the low back surgery and he is down to 3 cigarettes a day. No known sick contacts. Location: Reports: Chest, Back Quality: Reports: Ache Severity: Severe Improves with: Reports: None Worsens with: Reports: None Associated Symptoms: Reports: No Other Symptoms Back Pain Score (Numeric/FACES): 9 - Related Data Allergies Allergy/AdvReac Type Severity Reaction Status Date / Time cats and dogs Allergy Hives Uncoded 03/04/18 17:44 Home Meds: Home Meds Omeprazole 20 mg PO BID 11/09/13 [History] glyBURIDE [Glyburide] 2.5 mg PO BID 11/09/13 [History] Loratadine [Claritin] 1 tab PO DAILY PRN 03/08/16 [History] sitaGLIPtin Phos/Metformin HCl [Janumet Xr 50-1,000 mg Tablet] 50 - 1,000 mg PO BID 03/08/16 [History] atorvaSTATin [Lipitor] 20 mg PO DAILY 01/05/17 [History] Amitriptyline [Elavil] 2 tab PO BEDTIME 02/20/17 [History] Aspirin [Ecotrin] 1 tab PO DAILY 02/20/17 [History] tiZANidine [Zanaflex] 1 tab PO TID 02/20/17 [History] Past Medical History - Past Health History Medical/Surgical History: Denies Medical/Surgical History HEENT History: Reports: Impaired Vision Cardiovascular History: Reports: Heart Murmur, High Cholesterol Respiratory History: Reports: None Gastrointestinal History: Reports: Chronic Constipation, Chronic Diarrhea, GERD , Pancreatitis Genitourinary History: Reports: None, Other (See Below) Musculoskeletal History: Reports: Arthritis, Back Pain, Chronic, Fracture, Other (See Below) Other Musculoskeletal History: Fracture Hands and ankle with arthritis. Neurological History: Reports: None, Vertigo Psychiatric History: Reports: Panic Attack Endocrine/Metabolic History: Reports: Diabetes, Type II Hematologic History: Reports: None Immunologic History: Reports: None Oncologic (Cancer) History: Reports: None Dermatologic History: Reports: None, Other (See Below) Other Dermatologic History: poison shmuel to bilateral leg - Infectious Disease History Infectious Disease History: Reports: Chicken Pox - Past Surgical History Head Surgeries/Procedures: Reports: None HEENT Surgical History: Reports: None Cardiovascular Surgical History: Reports: None Respiratory Surgical History: Reports: None GI Surgical History: Reports: Cholecystectomy, Colonoscopy, EGD Neurological Surgical History: Reports: Other (See Below) Musculoskeletal Surgical History: Reports: None, Arthroscopic Knee, Shoulder Surgery, Other (See Below) Other Musculoskeletal Surgeries/Procedures:: herniated disc Social & Family History - Family History Family Medical History: Unobtainable HEENT: Reports: Glaucoma Other HEENT Family History: mom GI: Reports: Pancreatitis Neurological: Reports: Seizure Other Neurological Family History: dad Endocrine/Metabolic: Reports: Diabetes, type II Other Endocrine/Metabolic Family History: mom and dad - Tobacco Use Smoking Status *Q: Current Every Day Smoker Years of Tobacco use: 10 Packs/Tins Daily: 1 - Caffeine Use Caffeine Use: Reports: Coffee, Soda - Recreational Drug Use Recreational Drug Use: Yes Recreational Drug Type: Reports: Marijuana/Hashish Recreational Drug Use Frequency: Weekly ED ROS ENT - Review of Systems Review Of Systems: ROS reveals no pertinent complaints other than HPI. ED EXAM, ENT - Physical Exam Exam: See Below Exam Limited By: No Limitations General Appearance: Alert, WD/WN, No Apparent Distress Eye Exam: Bilateral Eye: Normal Inspection Ears: Normal External Exam, Normal Canal, Hearing Grossly Normal, Normal TMs Nose: No Blood, Nasal Discharge (mild and clear. Moderately inflamed nasal mucosa. ) Mouth/Throat: Normal Lips, Other (streaks of pharyngeal erythema with post nasal drip) Head: Atraumatic, Normocephalic Neck: Normal Inspection, Supple, Non-Tender, Full Range of Motion. No: Lymphadenopathy (L), Lymphadenopathy (R) Respiratory/Chest: No Respiratory Distress, No Accessory Muscle Use, Decreased Breath Sounds, Crackles (course breath sounds throughout.), Wheezing Cardiovascular: Regular Rate, Rhythm, No Edema GI/Abdominal: Normal Bowel Sounds, Soft, Non-Tender, No Distention (Male) Exam: Deferred Rectal (Males) Exam: Deferred Back: Decreased Range of Motion (chronic for patient), Paraspinal Tenderness ( right) Extremities: Normal Inspection, Normal Range of Motion, Non-Tender, No Pedal Edema, Normal Capillary Refill Neurological: Alert, Oriented, CN II-XII Intact, Normal Cognition, Normal Gait, No Motor/Sensory Deficits Psychiatric: Normal Affect, Normal Mood Skin: Warm, Dry, Intact, Normal Color, No Rash Course - Vital Signs Last Recorded V/S: Last Vital Signs Temp 36.9 C 03/04/18 17:47 Pulse 76 03/04/18 18:13 Resp 19 03/04/18 17:47 BP 137/75 03/04/18 17:47 Pulse Ox 98 03/04/18 17:47 - Orders/Labs/Meds Orders: Active Orders 24 hr Category Date Time Status RT Aerosol Therapy [RC] ASDIRECTED Care 03/04/18 18:04 Active RT Post Treatment Assessment [RC] Click to Edit Care 03/04/18 18:29 Ordered RT Pre-Treatment Assessment [RC] Click to Edit Care 03/04/18 18:29 Ordered Chest 2V [CR] Urgent Exams 03/04/18 18:02 Ordered COMPREHENSIVE METABOLIC PN,CMP [CHEM] Stat Lab 03/04/18 18:10 Received CULTURE STREP A CONFIRMATION [RM] Stat Lab 03/04/18 17:50 Results STREP SCRN A RAPID W CULT CONF [RM] Stat Lab 03/04/18 17:50 Results Labs: Laboratory Tests 03/04/18 03/04/18 Range/Units 17:50 18:10 WBC 7.4 (5.0-10.0) 10^3/uL RBC 4.44 L (4.6-6.2) 10^6/uL Hgb 14.6 (14.0-18.0) g/dL Hct 42.3 (40.0-54.0) % MCV 95.3 (80-100) fL MCH 32.9 (27.0-34.0) pg MCHC 34.5 (33.0-35.0) g/dL Plt Count 286 (150-450) 10^3/uL Neut % (Auto) 55.1 (42.2-75.2) % Lymph % (Auto) 31.4 (20.5-50.1) % Wilson % (Auto) 10.1 H (2-8) % Eos % (Auto) 2.7 (1.0-3.0) % Baso % (Auto) 0.7 (0.0-1.0) % Urine Color Yellow (YELLOW) Urine Appearance Clear (CLEAR) Urine pH 6.5 (5.0-9.0) Ur Specific [place] 1.015 (1.005-1.030) Urine Protein Negative (NEGATIVE) Urine Glucose (UA) >=1000 H (NEGATIVE) Urine Ketones Negative (NEGATIVE) Urine Occult Blood Trace-intact H (NEGATIVE) Urine Nitrite Negative (NEGATIVE) Urine Bilirubin Negative (NEGATIVE) Urine Urobilinogen 1.0 (0.2-1.0) mg/dL Ur Leukocyte Esterase Negative (NEGATIVE) Urine RBC 0-5 /HPF Urine WBC 0-5 (0-5/HPF) /HPF Ur Epithelial Cells Rare /HPF Urine Bacteria Rare (0-FEW/HPF) /HPF Rapid strep: Negative. Meds: Medications Discontinued Medications Generic Name Dose Route Start Last Admin Trade Name Freq PRN Reason Stop Dose Admin Albuterol 6.7 gm 03/04/18 18:28 Proventil Hfa INH 03/04/18 18:29 ONETIME ONE Albuterol/Ipratropium 3 ml 03/04/18 18:04 03/04/18 18:13 Duoneb 3.0-0.5 Mg/3 Ml NEB 03/04/18 18:05 3 ml ONETIME ONE Administration Azithromycin 500 mg 03/04/18 18:29 Zithromax PO 03/04/18 18:30 ONETIME ONE Benzonatate 200 mg 03/04/18 18:29 Tessalon Perles PO 03/04/18 18:30 ONETIME ONE - Radiology Interpretation Free Text/Narrative:: CXR: no acute process, see Rad. report. Departure - Departure Time of Disposition: 18:31 Disposition: Home, Self-Care 01 Condition: Good (acute bronchitis) Clinical Impression: Acute bronchitis Qualifiers: Bronchitis organism: unspecified organism Qualified Code(s): J20.9 - Acute bronchitis, unspecified Pharyngitis Qualifiers: Pharyngitis/tonsillitis etiology: unspecified etiology Qualified Code(s): J02.9 - Acute pharyngitis, unspecified - Discharge Information Instructions: Acute Bronchitis, Adult, [id number], Pharyngitis, [id number] Referrals: Wendy Malik MD [Primary Care Provider] - Forms: ED Department Discharge Additional Instructions: Rx: Zithromax 250mg Rx: Tessalon Perles 200mg Use Albuterol inhaler with spacer: 2 puffs every 4 hours as needed. Frequent saltwater gargles until sore throat resolves. Try to quit smoking. Follow up in clinic if not improving in 4 to 5 days. - My Orders Last 24 Hours: My Active Orders 03/04/18 17:50 CULTURE STREP A CONFIRMATION [RM] Stat STREP SCRN A RAPID W CULT CONF [RM] Stat 03/04/18 18:02 Chest 2V [CR] Urgent 03/04/18 18:04 RT Aerosol Therapy [RC] ASDIRECTED 03/04/18 18:10 COMPREHENSIVE METABOLIC PN,CMP [CHEM] Stat 03/04/18 18:29 RT Post Treatment Assessment [RC] Click to Edit RT Pre-Treatment Assessment [RC] Click to Edit - Assessment/Plan Last 24 Hours: My Active Orders 03/04/18 17:50 CULTURE STREP A CONFIRMATION [RM] Stat STREP SCRN A RAPID W CULT CONF [RM] Stat 03/04/18 18:02 Chest 2V [CR] Urgent 03/04/18 18:04 RT Aerosol Therapy [RC] ASDIRECTED 03/04/18 18:10 COMPREHENSIVE METABOLIC PN,CMP [CHEM] Stat 03/04/18 18:29 RT Post Treatment Assessment [RC] Click to Edit RT Pre-Treatment Assessment [RC] Click to Edit I have read and agree with the documentation that has been completed regarding this visit. By signing this record, I attest that the documentation was completed in my physical presence and is an accurate record of the encounter.
== END 2018-03-04 18:37 | disposition home or self-care (01) ==
LOC: DL.ED 17:38
DX: J20.9 Acute bronchitis, unspecified (principal); J02.9 Acute pharyngitis, unspecified; E11.9 Type 2 diabetes mellitus without complications; F17.210 Nicotine dependence, cigarettes, uncomplicated; Z91.048 Other nonmedicinal substance allergy status
CPT/HCPCS: 36415; 71046; 80053; 81001; 85025; 87081; 87430; 94640; 99284; A9270

== ENCOUNTER 2018-10-20 17:23 | Emergency (ER) | payer MEDICAID ==
[2018-10-20 17:38] VITALS: BP 132/81
[2018-10-20] MEDS ORDERED: Acetaminophen/oxyCODONE 325-5 MG Tab PO ONE (18:26)
[2018-10-20] MEDS ORDERED: methylPREDNISolone Sodium Succinate 125 MG/2 ML SDV IM ONE (18:26)
--- NOTE | 2018-10-20 18:30 | EDM.PDOC ---
Scribed by Astrid Lopez 10/20/18 [id number] for Phan Christiansen PA ED HPI GENERAL MEDICAL PROBLEM - General Chief Complaint: Back Pain or Injury Stated Complaint: BACK HURTS,FELL DOWN ON SOME BOARDS Time Seen by Provider: 10/20/18 17:47 Source of Information: Reports: Patient, RN, RN Notes Reviewed History Limitations: Reports: No Limitations - History of Present Illness INITIAL COMMENTS - FREE TEXT/NARRATIVE: Patient slipped last night at 1900 hours. He has increased back pains down right leg. He has increased pain with movement. He is working on getting into therapy. He took Gabapentin and Tylenol 1230 p.m. Onset Date: 10/19/18 Duration: Getting Worse Location: Reports: Back Quality: Reports: Ache Severity: Moderate Improves with: Reports: None Worsens with: Reports: None Associated Symptoms: Reports: No Other Symptoms Lower Back Pain Score (Numeric/FACES): 9 - Related Data Allergies Allergy/AdvReac Type Severity Reaction Status Date / Time cats and dogs Allergy Hives Uncoded 10/20/18 17:29 Home Meds: Home Meds Omeprazole 20 mg PO BID 11/09/13 [History] Loratadine [Claritin] 1 tab PO DAILY PRN 03/08/16 [History] sitaGLIPtin Phos/Metformin HCl [Janumet Xr 50-1,000 mg Tablet] 50 - 1,000 mg PO BID 03/08/16 [History] atorvaSTATin [Lipitor] 20 mg PO DAILY 01/05/17 [History] Amitriptyline [Elavil] 50 mg PO BEDTIME 02/20/17 [History] Gabapentin [Neurontin] 600 mg PO TID 07/13/18 [History] Glimepiride 1 mg PO DAILY 07/13/18 [History] Past Medical History - Past Health History Medical/Surgical History: Denies Medical/Surgical History HEENT History: Reports: Impaired Vision Cardiovascular History: Reports: Heart Murmur, High Cholesterol Respiratory History: Reports: None Gastrointestinal History: Reports: Chronic Constipation, Chronic Diarrhea, GERD , Pancreatitis Genitourinary History: Reports: None Musculoskeletal History: Reports: Arthritis, Back Pain, Chronic, Fracture, Other (See Below) Other Musculoskeletal History: Fracture Hands and ankle with arthritis. Neurological History: Reports: Neuropathy, Peripheral, Vertigo Psychiatric History: Reports: Panic Attack Endocrine/Metabolic History: Reports: Diabetes, Type II Hematologic History: Reports: None Immunologic History: Reports: None Oncologic (Cancer) History: Reports: None Dermatologic History: Reports: Other (See Below) Other Dermatologic History: poison shmuel to bilateral leg - Infectious Disease History Infectious Disease History: Reports: None - Past Surgical History Head Surgeries/Procedures: Reports: None HEENT Surgical History: Reports: None Cardiovascular Surgical History: Reports: None Respiratory Surgical History: Reports: None GI Surgical History: Reports: Cholecystectomy, Colonoscopy, EGD Endocrine Surgical History: Reports: None Neurological Surgical History: Reports: Spinal Fusion Musculoskeletal Surgical History: Reports: None, Arthroscopic Knee, Shoulder Surgery, Other (See Below) Other Musculoskeletal Surgeries/Procedures:: herniated disc, fusion lower back Social & Family History - Family History Family Medical History: Unobtainable HEENT: Reports: Glaucoma Other HEENT Family History: mom GI: Reports: Pancreatitis Neurological: Reports: Seizure Other Neurological Family History: dad Endocrine/Metabolic: Reports: Diabetes, type II Other Endocrine/Metabolic Family History: mom and dad - Tobacco Use Smoking Status *Q: Current Every Day Smoker Years of Tobacco use: 7 Packs/Tins Daily: 1 - Caffeine Use Caffeine Use: Reports: Coffee, Soda Caffeine Use Comment: ABOUT ONE POT PER DAY - Recreational Drug Use Recreational Drug Use: No ED ROS GENERAL - Review of Systems Review Of Systems: ROS reveals no pertinent complaints other than HPI. ED EXAM,LOWER BACK PAIN/INJURY - Physical Exam Exam: See Below Exam Limited By: No Limitations General Appearance: Alert, WD/WN, No Apparent Distress Eye Exam: Bilateral Eye: EOMI, Normal Inspection, PERRL Ears: Normal External Exam, Normal Canal, Hearing Grossly Normal, Normal TMs Nose: Normal Inspection, Normal Mucosa, No Blood Throat/Mouth: Normal Inspection, Normal Lips, Normal Teeth, Normal Gums, Normal Oropharynx, Normal Voice, No Airway Compromise Head: Atraumatic, Normocephalic Neck: Normal Inspection, Supple, Non-Tender, Full Range of Motion Respiratory/Chest: No Respiratory Distress, Lungs Clear, Normal Breath Sounds, No Accessory Muscle Use, Chest Non-Tender Cardiovascular: Normal Peripheral Pulses, Regular Rate, Rhythm, No Edema, No Gallop, No JVD, No Murmur, No Rub GI/Abdominal: Other (obese) (Male) Exam: Deferred Rectal (Males) Exam: Deferred Back Exam: Other (pain with palpation of low back right worse than left. No abrasion or bruising.) Extremities: Normal Inspection, Normal Range of Motion, Non-Tender, No Pedal Edema, Normal Capillary Refill Neurological: Alert, Normal Mood/Affect, Normal Dorsiflexion, CN II-XII Intact, Normal Plantar Flexion, Normal Gait, Normal Reflexes, No Motor/Sensory Deficits , Oriented x 3 Psychiatric: Normal Affect, Normal Mood Skin Exam: Warm, Dry, Intact, Normal Color, No Rash Lymphatic: No Adenopathy Course - Vital Signs Last Recorded V/S: Last Vital Signs Temp 36.9 C 10/20/18 17:34 Pulse 86 10/20/18 17:34 Resp 16 10/20/18 17:34 BP 132/81 10/20/18 17:34 Pulse Ox 98 10/20/18 17:34 - Orders/Labs/Meds Orders: Active Orders 24 hr Category Date Time Status Lumbar Spine 2 or 3V [CR] Urgent Exams 10/20/18 17:41 Taken Acetaminophen/oxyCODONE [Percocet 325-5 MG] Med 10/20/18 18:26 Once 1 tab PO ONETIME ONE Meds: Medications Discontinued Medications Generic Name Dose Route Start Last Admin Trade Name Freq PRN Reason Stop Dose Admin Methylprednisolone Sodium Succinate 125 mg 10/20/18 18:26 Solu-Medrol IM 10/20/18 18:27 ONETIME ONE Departure - Departure Time of Disposition: 18:27 Disposition: Home, Self-Care 01 Condition: Fair Clinical Impression: Low back pain Qualifiers: Chronicity: chronic Back pain laterality: right Sciatica presence: with sciatica Sciatica laterality: sciatica of right side Qualified Code(s): M54.41 - Lumbago with sciatica, right side; G89.29 - Other chronic pain - Discharge Information *PRESCRIPTION DRUG MONITORING PROGRAM REVIEWED*: Not Applicable *COPY OF PRESCRIPTION DRUG MONITORING REPORT IN PATIENT LILY: Not Applicable Instructions: Back Pain, Adult, [id number] Forms: ED Department Discharge Care Plan Goals: The patient was advised of the examination and x-ray results during the visit. The patient was given an injection of SoluMedrol (125 mg) and an oral dose of Percocet while in the ED. The patient was encouraged to rest and ice his back. The patient should follow-up wtih his primary care facility for continued evaluation and management. If the patient has any additional symptoms or concerns, the patient should either visit his primary care facility or return to the emergency department. - My Orders Last 24 Hours: My Active Orders 10/20/18 17:41 Lumbar Spine 2 or 3V [CR] Urgent 10/20/18 18:26 Acetaminophen/oxyCODONE [Percocet 325-5 MG] 1 tab PO ONETIME ONE - Assessment/Plan Last 24 Hours: My Active Orders 10/20/18 17:41 Lumbar Spine 2 or 3V [CR] Urgent 10/20/18 18:26 Acetaminophen/oxyCODONE [Percocet 325-5 MG] 1 tab PO ONETIME ONE I have read and agree with the documentation that has been completed regarding this visit. By signing this record, I attest that the documentation was completed in my physical presence and is an accurate record of the encounter.
== END 2018-10-20 18:34 | disposition home or self-care (01) ==
LOC: DL.ED 17:23
DX: M54.41 Lumbago with sciatica, right side (principal); G89.29 Other chronic pain; E78.00 Pure hypercholesterolemia, unspecified; E11.9 Type 2 diabetes mellitus without complications; F17.210 Nicotine dependence, cigarettes, uncomplicated; Z79.899 Other long term (current) drug therapy; Z79.84 Long term (current) use of oral hypoglycemic drugs
CPT/HCPCS: 72100; 96372; 99283; A9270-GY; J2930

== ENCOUNTER 2019-06-19 00:44 | Emergency (ER) | payer MEDICAID ==
[2019-06-19] MEDS ORDERED: Acetaminophen/oxyCODONE 325-5 MG Tab PO ONE (01:31)
--- NOTE | 2019-06-19 01:32 | EDM.PDOC ---
ED HPI GENERAL MEDICAL PROBLEM - General Chief Complaint: Back Pain or Injury Stated Complaint: BODY IS ACHING AND FEVER Time Seen by Provider: 06/19/19 01:05 Source of Information: Reports: Patient, RN History Limitations: Reports: No Limitations - History of Present Illness INITIAL COMMENTS - FREE TEXT/NARRATIVE: ED with c/o body aches, severe low back pain. Hx lumbar fusion one year ago in [place]. No injury. Last tylenol at noon today. States has not taken pain medication today, initially stated has been trying to save medication and not use them, later reports forgot them in friends car and were stolen. Reports has been evaluated for pain pump but needed to have depression treated first before could proceed with pump. Increased pain with movement and walking. [place] like fever tonight. Diarrhea 2 days ago. No difficulty with urination. Urine darker this am and increased fluid intake and improved. Spider bite to left wrist 2 days ago now open draining and red. No cough sore throat, SOB or chest pain. [place] 'just feels rotten and achy all over". Lower Back Pain Score (Numeric/FACES): 9 - Related Data Allergies Allergy/AdvReac Type Severity Reaction Status Date / Time cats and dogs Allergy Hives Uncoded 06/19/19 00:54 Home Meds: Home Meds atorvaSTATin [Lipitor] 20 mg PO DAILY 01/05/17 [History] Amitriptyline [Elavil] 50 mg PO BEDTIME 02/20/17 [History] Gabapentin [Neurontin] 600 mg PO TID 07/13/18 [History] Glimepiride 3 mg PO DAILY 07/13/18 [History] oxyCODONE 5 mg PO BID 03/14/19 [History] Baclofen 10 mg PO TID 06/19/19 [History] DULoxetine [Cymbalta] 30 mg PO DAILY 06/19/19 [History] Pantoprazole Sodium [Protonix] 40 mg PO DAILY 06/19/19 [History] Past Medical History - Past Health History Medical/Surgical History: Denies Medical/Surgical History HEENT History: Reports: Impaired Vision Cardiovascular History: Reports: Heart Murmur, High Cholesterol Respiratory History: Reports: None Gastrointestinal History: Reports: Chronic Constipation, Chronic Diarrhea, GERD , Pancreatitis Genitourinary History: Reports: None Musculoskeletal History: Reports: Arthritis, Back Pain, Chronic, Fracture, Other (See Below) Other Musculoskeletal History: Fracture Hands and ankle with arthritis. Neurological History: Reports: Neuropathy, Peripheral, Vertigo Psychiatric History: Reports: Panic Attack Endocrine/Metabolic History: Reports: Diabetes, Type II Hematologic History: Reports: None Immunologic History: Reports: None Oncologic (Cancer) History: Reports: None Dermatologic History: Reports: Other (See Below) Other Dermatologic History: poison shmuel to bilateral leg - Infectious Disease History Infectious Disease History: Reports: None - Past Surgical History Head Surgeries/Procedures: Reports: None HEENT Surgical History: Reports: None Cardiovascular Surgical History: Reports: None Respiratory Surgical History: Reports: None GI Surgical History: Reports: Cholecystectomy, Colonoscopy, EGD Endocrine Surgical History: Reports: None Neurological Surgical History: Reports: Spinal Fusion Musculoskeletal Surgical History: Reports: None, Arthroscopic Knee, Shoulder Surgery, Other (See Below) Other Musculoskeletal Surgeries/Procedures:: herniated disc, fusion lower back Social & Family History - Family History Family Medical History: Noncontributory HEENT: Reports: Glaucoma Other HEENT Family History: mom GI: Reports: Pancreatitis Neurological: Reports: Seizure Other Neurological Family History: dad Endocrine/Metabolic: Reports: Diabetes, type II Other Endocrine/Metabolic Family History: mom and dad - Tobacco Use Smoking Status *Q: Current Every Day Smoker Years of Tobacco use: 30 Packs/Tins Daily: 0.5 - Caffeine Use Caffeine Use: Reports: Coffee, Soda, Tea Caffeine Use Comment: ABOUT ONE POT PER DAY - Recreational Drug Use Recreational Drug Use: Yes Drug Use in Last 12 Months: Yes Recreational Drug Type: Reports: Marijuana/Hashish Recreational Drug Use Frequency: Socially Recreational Drug Last Use: 06-16-2019 ED ROS GENERAL - Review of Systems Review Of Systems: ROS reveals no pertinent complaints other than HPI. ED EXAM,LOWER BACK PAIN/INJURY - Physical Exam Exam: See Below Exam Limited By: No Limitations General Appearance: Alert, Moderate Distress Eye Exam: Bilateral Eye: EOMI Ears: Normal External Exam Nose: Normal Inspection Throat/Mouth: Normal Inspection Head: Atraumatic, Normocephalic Neck: Normal Inspection, Full Range of Motion Respiratory/Chest: No Respiratory Distress, Lungs Clear, Normal Breath Sounds Cardiovascular: Normal Peripheral Pulses, Regular Rate, Rhythm GI/Abdominal: Normal Bowel Sounds, Soft, Non-Tender Back Exam: Paraspinal Tenderness (lumbar bilateral), Vertebral Tenderness ( lumbar) Extremities: Normal Range of Motion. No: Normal Inspection Neurological: Alert, Normal Plantar Flexion, Normal Reflexes, No Motor/Sensory Deficits, Oriented x 3. No: Normal Gait (stooped, stiff) Psychiatric: Flat Affect Skin Exam: Warm, Dry, Wound/Incision (2cm shallow abscess open scant light pick yellow dranage, white, red base surrounding erythema). No: Intact Course - Vital Signs Last Recorded V/S: Last Vital Signs Temp 100.1 F 06/19/19 03:00 Pulse 100 06/19/19 03:00 Resp 20 06/19/19 03:00 BP 109/55 L 06/19/19 03:00 Pulse Ox 98 06/19/19 03:00 - Orders/Labs/Meds Orders: Active Orders 24 hr Category Date Time Status Lumbar Spine w Cont [CT] Urgent Exams 06/19/19 02:11 Stop Req Lumbar Spine wo Cont [CT] Urgent Exams 06/19/19 02:37 Taken CULTURE BLOOD [BC] Stat Lab 06/19/19 01:22 Received CULTURE BLOOD [BC] Stat Lab 06/19/19 01:26 Received CULTURE WOUND [RM] Stat Lab 06/19/19 01:54 Received Blood Culture x2 Reflex Set [OM.PC] Stat Oth 06/19/19 01:14 Ordered Labs: Laboratory Tests 06/19/19 06/19/19 06/19/19 Range/Units 01:26 01:26 01:26 WBC 10.1 H (5.0-10.0) 10^3/uL RBC 4.35 L (4.6-6.2) 10^6/uL Hgb 14.2 (14.0-18.0) g/dL Hct 41.3 (40.0-54.0) % MCV 94.9 (80-100) fL MCH 32.6 (27.0-34.0) pg MCHC 34.4 (33.0-35.0) g/dL Plt Count 236 (150-450) 10^3/uL Neut % (Auto) 81.8 H (42.2-75.2) % Lymph % (Auto) 11.9 L (20.5-50.1) % [place] % (Auto) 5.7 (2-8) % Eos % (Auto) 0.4 L (1.0-3.0) % Baso % (Auto) 0.2 (0.0-1.0) % Sodium (135-145) mmol/L Potassium (3.6-5.0) mmol/L Chloride (101-111) mmol/L Carbon Dioxide (21.0-31.0) mmol/L Anion Gap BUN (7-18) mg/dL Creatinine (0.6-1.3) mg/dL Est Cr Clr Drug Dosing mL/min Estimated GFR (MDRD) BUN/Creatinine Ratio Glucose (74-105) mg/dL Lactic Acid (0.5-2.2) mmol/L Calcium (8.4-10.2) mg/dl Total Bilirubin (0.2-1.0) mg/dL AST (10-42) IU/L ALT (10-60) IU/L Alkaline Phosphatase (42-121) IU/L Total Protein (6.7-8.2) g/dl Albumin (3.2-5.5) g/dl Globulin Albumin/Globulin Ratio Urine Color Yellow (YELLOW) Urine Appearance Clear (CLEAR) Urine pH 6.0 (5.0-9.0) Ur Specific [place] <= 1.005 (1.005-1.030) Urine Protein Negative (NEGATIVE) Urine Glucose (UA) Negative (NEGATIVE) Urine Ketones Negative (NEGATIVE) Urine Occult Blood Negative (NEGATIVE) Urine Nitrite Negative (NEGATIVE) Urine Bilirubin Negative (NEGATIVE) Urine Urobilinogen 0.2 (0.2-1.0) mg/dL Ur Leukocyte Esterase Negative (NEGATIVE) Urine Opiates Screen Negative (NEGATIVE) Ur Oxycodone Screen Negative (NEGATIVE) Urine Methadone Screen Negative (NEGATIVE) Ur Barbiturates Screen Negative (NEGATIVE) U Tricyclic Antidepress Negative (NEGATIVE) Ur Phencyclidine Scrn Negative (NEGATIVE) Ur Amphetamine Screen Negative (NEGATIVE) U Methamphetamines Scrn Negative (NEGATIVE) Urine MDMA Screen Negative (NEGATIVE) U Benzodiazepines Scrn Negative (NEGATIVE) Urine Cocaine Screen Negative (NEGATIVE) U Marijuana (THC) Screen Positive H (NEGATIVE) 06/19/19 06/19/19 Range/Units 01:26 01:26 WBC (5.0-10.0) 10^3/uL RBC (4.6-6.2) 10^6/uL Hgb (14.0-18.0) g/dL Hct (40.0-54.0) % MCV (80-100) fL MCH (27.0-34.0) pg MCHC (33.0-35.0) g/dL Plt Count (150-450) 10^3/uL Neut % (Auto) (42.2-75.2) % Lymph % (Auto) (20.5-50.1) % [place] % (Auto) (2-8) % Eos % (Auto) (1.0-3.0) % Baso % (Auto) (0.0-1.0) % Sodium 134 L (135-145) mmol/L Potassium 3.2 L (3.6-5.0) mmol/L Chloride 102 (101-111) mmol/L Carbon Dioxide 22.0 (21.0-31.0) mmol/L Anion Gap 13.2 BUN 17 (7-18) mg/dL Creatinine 0.9 (0.6-1.3) mg/dL Est Cr Clr Drug Dosing 93.85 mL/min Estimated GFR (MDRD) > 60 BUN/Creatinine Ratio 18.88 Glucose 196 H (74-105) mg/dL Lactic Acid 1.4 (0.5-2.2) mmol/L Calcium 8.1 L (8.4-10.2) mg/dl Total Bilirubin 0.7 (0.2-1.0) mg/dL AST 18 (10-42) IU/L ALT 24 (10-60) IU/L Alkaline Phosphatase 83 (42-121) IU/L Total Protein 6.9 (6.7-8.2) g/dl Albumin 3.7 (3.2-5.5) g/dl Globulin 3.2 Albumin/Globulin Ratio 1.16 Urine Color (YELLOW) Urine Appearance (CLEAR) Urine pH (5.0-9.0) Ur Specific [place] (1.005-1.030) Urine Protein (NEGATIVE) Urine Glucose (UA) (NEGATIVE) Urine Ketones (NEGATIVE) Urine Occult Blood (NEGATIVE) Urine Nitrite (NEGATIVE) Urine Bilirubin (NEGATIVE) Urine Urobilinogen (0.2-1.0) mg/dL Ur Leukocyte Esterase (NEGATIVE) Urine Opiates Screen (NEGATIVE) Ur Oxycodone Screen (NEGATIVE) Urine Methadone Screen (NEGATIVE) Ur Barbiturates Screen (NEGATIVE) U Tricyclic Antidepress (NEGATIVE) Ur Phencyclidine Scrn (NEGATIVE) Ur Amphetamine Screen (NEGATIVE) U Methamphetamines Scrn (NEGATIVE) Urine MDMA Screen (NEGATIVE) U Benzodiazepines Scrn (NEGATIVE) Urine Cocaine Screen (NEGATIVE) U Marijuana (THC) Screen (NEGATIVE) Meds: Medications Discontinued Medications Generic Name Dose Route Start Last Admin Trade Name Freq PRN Reason Stop Dose Admin Hydromorphone HCl 1 mg 06/19/19 02:59 06/19/19 03:07 Dilaudid IVPUSH 06/19/19 03:00 1 mg ONETIME ONE Administration Ceftriaxone Sodium 2,000 mg/ 100 mls @ 200 mls/hr 06/19/19 01:30 06/19/19 01: 45 Sodium Chloride IV 06/19/19 01:59 200 mls/hr ONETIME ONE Administration Sodium Chloride 1,000 mls @ 999 mls/hr 06/19/19 02:59 06/19/19 03:06 Normal Saline IV 06/19/19 03:59 999 mls/hr .BOLUS ONE Administration Ondansetron HCl 4 mg 06/19/19 02:59 06/19/19 03:06 Zofran IV 06/19/19 03:00 4 mg ONETIME ONE Administration Oxycodone/Acetaminophen 1 tab 06/19/19 01:31 06/19/19 01:44 Percocet 325-5 Mg PO 06/19/19 01:32 1 tab ONETIME ONE Administration - Re-Assessments/Exams Free Text/Narrative Re-Assessment/Exam: 06/19/19 03:02 Pain worsening again upon return from CT. Now febrile 100.1. 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 use Diabetes mellitus complication status: with kidney complications Diabetes mellitus complication detail: with other kidney complication Qualified Code(s): E11.29 - Type 2 diabetes mellitus with other diabetic kidney complication - Discharge Information *PRESCRIPTION DRUG MONITORING PROGRAM REVIEWED*: Yes *COPY OF PRESCRIPTION DRUG MONITORING REPORT IN PATIENT LLIY: No Instructions: Musculoskeletal Pain Forms: ED Department Discharge Additional Instructions: Follow up with primary care for ogoing pain management Wound recheck on Left wrist 3-5 days , sooner if increased redness drainage, swelling keep wound covered, wash with soap and water twice daily doxycycline 100mg one twice daily x 10 days tylenol 650mg every 4 hours as needed for discomfort - My Orders Last 24 Hours: My Active Orders 06/19/19 01:14 Blood Culture x2 Reflex Set [OM.PC] Stat 06/19/19 01:22 CULTURE BLOOD [BC] Stat 06/19/19 01:26 CULTURE BLOOD [BC] Stat 06/19/19 01:54 CULTURE WOUND [RM] Stat 06/19/19 02:11 Lumbar Spine w Cont [CT] Urgent 06/19/19 02:37 Lumbar Spine wo Cont [CT] Urgent - Assessment/Plan Last 24 Hours: My Active Orders 06/19/19 01:14 Blood Culture x2 Reflex Set [OM.PC] Stat 06/19/19 01:22 CULTURE BLOOD [BC] Stat 06/19/19 01:26 CULTURE BLOOD [BC] Stat 06/19/19 01:54 CULTURE WOUND [RM] Stat 06/19/19 02:11 Lumbar Spine w Cont [CT] Urgent 06/19/19 02:37 Lumbar Spine wo Cont [CT] Urgent
[2019-06-19 01:54] LABS: ANION GAP 13.2; CHLORIDE,CL 102 mmol/L (101-111); SODIUM,NA 134 mmol/L (135-145)
[2019-06-19] MEDS ORDERED: Sodium Chloride 0.9% 1,000 ML IV ONE (02:59)
[2019-06-19] MEDS ORDERED: HYDROmorphone 1 MG/ML Syringe IVPUSH ONE (02:59)
[2019-06-19] MEDS ORDERED: Ondansetron 4 MG/2 ML SDV IV ONE (02:59)
[2019-06-19 03:00] VITALS: PULSE 100
[2019-06-19 04:10] VITALS: BP 123/67
== END 2019-06-19 04:11 | disposition home or self-care (01) ==
LOC: DL.ED 00:44
DX: M54.5 Low back pain (principal); G89.29 Other chronic pain; E11.44 Type 2 diabetes mellitus with diabetic amyotrophy; L02.414 Cutaneous abscess of left upper limb; E11.29 Type 2 diabetes mellitus with other diabetic kidney complication; K21.9 Gastro-esophageal reflux disease without esophagitis; F17.210 Nicotine dependence, cigarettes, uncomplicated; Z79.84 Long term (current) use of oral hypoglycemic drugs; Z91.09 Other allergy status, other than to drugs and biological substances
CPT/HCPCS: 36415; 72131; 80053; 80305; 81003; 83605; 85025; 87040; 87070; 87077; 96361; 96365; 96375; 99284; A9270; J0696; J1170; J2405; J7030; J7050

== ENCOUNTER 2020-08-01 00:14 | Emergency (ER) | payer MEDICAID ==
[2020-08-01 00:30] VITALS: BP 126/72; PULSE 92
[2020-08-01] MEDS ORDERED: LORazepam 2 MG/ML SDV IM ONE (01:01)
--- NOTE | 2020-08-01 01:08 | EDM.PDOC ---
ED HPI GENERAL MEDICAL PROBLEM - General Chief Complaint: Back Pain or Injury Stated Complaint: [facility] Time Seen by Provider: 08/01/20 01:02 Source of Information: Reports: Patient History Limitations: Reports: No Limitations - History of Present Illness INITIAL COMMENTS - FREE TEXT/NARRATIVE: states out of pain meds. explained to pt re legality of pain managment in ER. pt understood. Back Pain Score (Numeric/FACES): 9 - Related Data Allergies Allergy/AdvReac Type Severity Reaction Status Date / Time cats and dogs Allergy Hives Uncoded 06/19/19 00:54 Home Meds: Home Meds atorvaSTATin [Lipitor] 20 mg PO DAILY 01/05/17 [History] Amitriptyline [Elavil] 50 mg PO BEDTIME 02/20/17 [History] Gabapentin [Neurontin] 600 mg PO TID 07/13/18 [History] Glimepiride 3 mg PO DAILY 07/13/18 [History] oxyCODONE 5 mg PO BID 03/14/19 [History] Baclofen 10 mg PO TID 06/19/19 [History] DULoxetine [Cymbalta] 30 mg PO DAILY 06/19/19 [History] Pantoprazole Sodium [Protonix] 40 mg PO DAILY 06/19/19 [History] Past Medical History - Past Health History Medical/Surgical History: Denies Medical/Surgical History HEENT History: Reports: Impaired Vision Cardiovascular History: Reports: Heart Murmur, High Cholesterol Respiratory History: Reports: None Gastrointestinal History: Reports: Chronic Constipation, Chronic Diarrhea, GERD, Pancreatitis Genitourinary History: Reports: None Musculoskeletal History: Reports: Arthritis, Back Pain, Chronic, Fracture, Other (See Below) Other Musculoskeletal History: Fracture Hands and ankle with arthritis. Neurological History: Reports: Neuropathy, Peripheral, Vertigo Psychiatric History: Reports: Panic Attack Endocrine/Metabolic History: Reports: Diabetes, Type II Hematologic History: Reports: None Immunologic History: Reports: None Oncologic (Cancer) History: Reports: None Dermatologic History: Reports: Other (See Below) Other Dermatologic History: poison shmuel to bilateral leg - Infectious Disease History Infectious Disease History: Reports: None - Past Surgical History Head Surgeries/Procedures: Reports: None HEENT Surgical History: Reports: None Cardiovascular Surgical History: Reports: None Respiratory Surgical History: Reports: None GI Surgical History: Reports: Cholecystectomy, Colonoscopy, EGD Endocrine Surgical History: Reports: None Neurological Surgical History: Reports: Spinal Fusion Musculoskeletal Surgical History: Reports: None, Arthroscopic Knee, Shoulder Surgery, Other (See Below) Other Musculoskeletal Surgeries/Procedures:: herniated disc, fusion lower back Social & Family History - Family History Family Medical History: No Pertinent Family History HEENT: Reports: Glaucoma Other HEENT Family History: mom GI: Reports: Pancreatitis Neurological: Reports: Seizure Other Neurological Family History: dad Endocrine/Metabolic: Reports: Diabetes, type II Other Endocrine/Metabolic Family History: mom and dad - Tobacco Use Tobacco Use Status *Q: Current Every Day Tobacco User Years of Tobacco use: 10 Packs/Tins Daily: 0.2 - Caffeine Use Caffeine Use: Reports: Coffee Caffeine Use Comment: ABOUT ONE POT PER DAY - Recreational Drug Use Recreational Drug Use: No ED ROS GENERAL - Review of Systems Review Of Systems: Comprehensive ROS is negative, except as noted in HPI. ED EXAM,LOWER BACK PAIN/INJURY - Physical Exam Exam: See Below Exam Limited By: No Limitations General Appearance: Alert, WD/WN, Mild Distress, Moderate Distress, Other (discomfort) Ears: Hearing Grossly Normal Throat/Mouth: Normal Voice, No Airway Compromise Head: Atraumatic Neck: Non-Tender, Full Range of Motion Respiratory/Chest: No Respiratory Distress Cardiovascular: Regular Rate, Rhythm GI/Abdominal: Soft, Non-Tender (Male) Exam: Deferred Rectal (Males) Exam: Deferred Back Exam: Muscle Spasm, Paraspinal Tenderness Neurological: Alert, No Motor/Sensory Deficits, Oriented x 3 Psychiatric: Tearful Skin Exam: Warm, Dry, Normal Color Lymphatic: No Adenopathy Course - Vital Signs Last Recorded V/S: Last Vital Signs Temp 37.2 C 08/01/20 00:25 Pulse 92 08/01/20 00:25 Resp 16 08/01/20 00:25 BP 126/72 08/01/20 00:25 Pulse Ox 98 08/01/20 00:25 - Orders/Labs/Meds Orders: Active Orders 24 hr Category Date Time Status UA W/MICROSCOPIC [URIN] Stat Lab 08/01/20 00:48 Results LORazepam [Ativan] Med 08/01/20 01:01 Once 2 mg IM ONETIME ONE Labs: Laboratory Tests 08/01/20 08/01/20 Range/Units 00:48 00:48 Urine Color Yellow (YELLOW) Urine Appearance Clear (CLEAR) Urine pH 6.5 (5.0-9.0) Ur Specific [place] 1.010 (1.005-1.030) Urine Protein Negative (NEGATIVE) Urine Glucose (UA) >=1000 H (NEGATIVE) Urine Ketones Negative (NEGATIVE) Urine Occult Blood Trace-intact H (NEGATIVE) Urine Nitrite Negative (NEGATIVE) Urine Bilirubin Negative (NEGATIVE) Urine Urobilinogen 0.2 (0.2-1.0) mg/dL Ur Leukocyte Esterase Negative (NEGATIVE) Urine Opiates Screen Positive H (NEGATIVE) Ur Oxycodone Screen Positive H (NEGATIVE) Urine Methadone Screen Negative (NEGATIVE) Ur Barbiturates Screen Negative (NEGATIVE) U Tricyclic Antidepress Negative (NEGATIVE) Ur Phencyclidine Scrn Negative (NEGATIVE) Ur Amphetamine Screen Negative (NEGATIVE) U Methamphetamines Scrn Negative (NEGATIVE) Urine MDMA Screen Negative (NEGATIVE) U Benzodiazepines Scrn Positive H (NEGATIVE) Urine Cocaine Screen Negative (NEGATIVE) U Marijuana (THC) Screen Positive H (NEGATIVE) Departure - Departure Time of Disposition: 01:06 Disposition: Home, Self-Care 01 Condition: Good Clinical Impression: Acute exacerbation of chronic low back pain - Discharge Information Additional Instructions: 1) rest 2) follow up at clinic Sepsis Event Note (ED) - Evaluation Sepsis Screening Result: No Definite Risk - Focused Exam Vital Signs: Vital Signs Temp Pulse Resp BP Pulse Ox 08/01/20 00:25 37.2 C 92 16 126/72 98 - My Orders Last 24 Hours: My Active Orders 08/01/20 00:48 UA W/MICROSCOPIC [URIN] Stat 08/01/20 01:01 LORazepam [Ativan] 2 mg IM ONETIME ONE - Assessment/Plan Last 24 Hours: My Active Orders 08/01/20 00:48 UA W/MICROSCOPIC [URIN] Stat 08/01/20 01:01 LORazepam [Ativan] 2 mg IM ONETIME ONE
== END 2020-08-01 01:24 | disposition home or self-care (01) ==
LOC: DL.ED 00:14
DX: M54.5 Low back pain (principal); G89.29 Other chronic pain; E11.42 Type 2 diabetes mellitus with diabetic polyneuropathy; E78.00 Pure hypercholesterolemia, unspecified; K21.9 Gastro-esophageal reflux disease without esophagitis; F17.210 Nicotine dependence, cigarettes, uncomplicated; Z91.048 Other nonmedicinal substance allergy status; Z79.899 Other long term (current) drug therapy
CPT/HCPCS: 80305-QW; 81001; 96372; 99283; J2060

== ENCOUNTER 2025-04-13 17:02 | Emergency (ER) | payer MEDICAID ==
[2025-04-13] MEDS ORDERED: Sodium Chloride 0.9% 10 ML Syringe FLUSH PRN (17:24)
[2025-04-13 17:43] LABS: BASOPHILS PERCENT AUTO 0.8 % (0.0-1.0); EOSINOPHILS PERCENT AUTO 3.2 % (1.0-3.0); LYMPHOCYTES PERCENT AUTO 26.8 % (20.5-50.1); MONOCYTES PERCENT AUTO 9.9 % (2-8); NEUTROPHILS PERCENT AUTO 59.3 % (42.2-75.2); PLATELET COUNT,PLT 306 10^3/uL (150-450); RED BLOOD CELL COUNT 4.73 10^6/uL (4.6-6.2); WHITE BLOOD CELL COUNT,WBC 7.5 10^3/uL (5.0-10.0)
[2025-04-13 17:50] VITALS: BP 112/73; PULSE 90
[2025-04-13 18:01] LABS: BLOOD UREA NITROGEN,BUN 7 mg/dL (7-18); CARBON DIOXIDE,CO2 29 mmol/L (21-32); CHLORIDE,CL 86 mmol/L (98-107); CREATININE 1.20 mg/dL (0.70-1.30); POTASSIUM,K 5.5 mmol/L (3.5-5.1); SODIUM,NA 123 mmol/L (136-145)
[2025-04-13 18:02] LABS: A/G RATIO 1.1; ALANINE AMINOTRANSFERASE,ALT 101 U/L (16-63); ASPARTATE AMNIOTRANSFERASE,AST 70 U/L (15-37); BILIRUBIN TOTAL 0.5 mg/dL (0.2-1.0); EST CRCL DRUG DOSING (CG) 64.20 mL/min; PROTEIN TOTAL,TP 7.1 g/dL (6.4-8.2)
[2025-04-13 18:17] LABS: ESTIMATED GFR 72 mL/min (>=60); GLUCOSE RANDOM 898 mg/dL (70-99)
[2025-04-13] MEDS ORDERED: 50% Dextrose in Water 50 ML Syringe IVPUSH PRN (18:19)
[2025-04-13 18:25] LABS: KETONES,BLOOD NEGATIVE
[2025-04-13 18:37] LABS: O2 DELIVERY DEVICE ROOM AIR
[2025-04-13 18:39] LABS: BASE EXCESS VENOUS 2.3 mmol/l ((-2)-(+3)); BICARBONATE,VENOUS 28 mmol/l (19-25); O2 SATURATION VENOUS 73.1 % (60-80); PCO2 VENOUS 47 mmHg (41-51); PH,VENOUS 7.38 (7.31-7.41); PO2 VENOUS 46 mmHg (35-42)
[2025-04-13 18:43] LABS: LACTIC ACID 5.0 mmol/L (0.4-2.0)
[2025-04-13] MEDS: Insulin Regular, Human 100 Units/ML 10 ML Vial IV ONE (19:02)
== END 2025-04-13 20:08 | disposition home or self-care (01) ==
LOC: DL.ED 17:02
DX: E11.65 Type 2 diabetes mellitus with hyperglycemia (principal); E78.00 Pure hypercholesterolemia, unspecified; Z91.048 Other nonmedicinal substance allergy status; Z79.84 Long term (current) use of oral hypoglycemic drugs; Z90.49 Acquired absence of other specified parts of digestive tract; Z79.899 Other long term (current) drug therapy
CPT/HCPCS: 36415; 80053; 82009; 82803; 82947; 83036; 83605; 85025; 96360; 96361; 99283; 99284-25; A9270-GY; J7030